=== PATIENT | female | born 2005 | race Caucasian/White ===

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

== ENCOUNTER 2023-04-16 14:03 | Emergency (ER) | payer MEDICAID, SELFPAY ==
[2023-04-16 14:46] VITALS: BP 136/61; PULSE 98; RESP 18; TEMP 36.6; O2SAT 98; BMI 37.1
--- NOTE | 2023-04-16 14:47 | ED_ITS ---
HPI - Nausea/Vomiting/Diarrhea General Chief complaint: Nausea/Vomiting/Diarrhea Stated complaint: vomiting Time Seen by Provider: 04/16/23 16:33 Source: patient Mode of arrival: ambulatory Limitations: no limitations History of Present Illness HPI Narrative: 17 yo female presents to the ED today with nausea/ vomiting, generalized weakness, and epigastric pain beginning this morning. Patient states she has been vomiting since 05:00 hours is not been able to eat or drink. She states she is feeling weak and dizzy. Patient complains of a pressure-like pain and points to her epigastric area when asked to localize the pain. Patient denied fever, chills, rhinorrhea, sore throat, rhinorrhea. She states she has an occasional nonproductive cough. She denied chest pain, shortness of breath dyspnea on exertion. She does complain of myalgias and arthralgias. Related Data Previous Rx's Medication Instructions Recorded hydroxyzine HCl 50 mg tablet 50 mg PO QID PRN anxiety #10 tabs 05/03/20 amoxicillin 500 mg capsule 500 mg PO BID 10 days #20 caps 04/15/21 ibuprofen 400 mg tablet 400 mg PO Q6H PRN pain #28 tabs 04/15/21 prednisone 20 mg tablet 40 mg (2 x 20 mg) PO DAILY 5 days 04/15/21 #10 tabs ondansetron 4 mg disintegrating 4 mg PO Q6-8H PRN nausea and 04/16/23 tablet vomiting #14 tabs Allergies Allergy/AdvReac Type Severity Reaction Status Date / Time No Known Allergies Allergy Verified 04/16/23 14:46 Review of Systems 2 Review of Systems: Yes all other systems are reviewed and are negative [facility] Past Medical History [facility] Narrative: Past medical history: Absent seizures-she takes no medications. Surgical history: None. Social history: She denies tobacco use. She occasionally drinks alcohol but did not drink recently. She smokes marijuana 2-3 times every other day Medical History Anxiety Seizures Social History Alcohol intake: current Alcohol intake frequency: holidays/special occasions only Smoked in Last 30 Days: No Use of substances other than those prescribed or required for medical reasons: Yes Substance Use Type: Marijuana Advance Directives: No Advance Directives Information Provided: No Physical Exam 2 Vital Signs: Vital Signs: Last Vital Signs Temp 98.0 F 04/16/23 16:50 Pulse 97 04/16/23 18:45 Resp 14 04/16/23 18:45 BP 130/70 04/16/23 18:45 Pulse Ox 100 04/16/23 18:45 O2 Del Method Room Air 04/16/23 18:45 BMI result Body Mass Index 37.1 Vital signs were normal Exam: General: Awake, patient was actively vomit small amounts of bilious material out was in the room. Head: Normocephalic, atraumatic EENT: PERRL, Lids normal, sclera normal, conjunctiva normal, nose normal , ears normal, throat without erythema or exudates Neck: Supple, no adenopathy, no trachea midline or C-spine tenderness Lung: breath sounds symmetric, no wheezing, rales or rhonchi Chest: symmetric movement, nontender Heart: regular rate and rhythm, normal S1, S2 no murmurs or rubs Abdomen: soft, moderate epigastric tenderness r, nondistended, normal bowel sounds Back: no vertebral tenderness, no CVAT Extremities: no deformities, moves all extremities symmetrically Neuro: Awake, alert, oriented, normal speech, moves all extremities symmetrically Psych: Pleasant, cooperative Course Course Course Narrative: RME:?17 yo female presents to the ED today with nausea/ vomiting, generalized weakness, and epigastric pain beginning this morning. +sick contacts. Denies etoh consumptions. Denies chance of . Denies fever/chills, diarreah, dysuria, hematuria, vaginal discharge. PE: ttp epigastric region. no rebound/ guarding. Plan: serology, UA, preg Full HPI, ROS and PE to be performed by the primary ED provider. Medications Administered Discontinued Medications Generic Name Dose Route Start Last Admin Trade Name Freq PRN Reason Stop Dose Admin Sodium Chloride 1,000 mls @ 999 mls/hr 04/16/23 16:44 04/16/23 18:29 Ns IV 04/16/23 17:44 Infused .Q1H1M STA Infusion Ketorolac Tromethamine 15 mg 04/16/23 16:44 04/16/23 17:05 Ketorolac Tromethamine 15 Mg/Ml Vial IVPUSH 04/16/23 16:45 15 mg ONCE STA Administration Ondansetron HCl 4 mg 04/16/23 16:44 04/16/23 17:04 Ondansetron Hcl 4 Mg/2 Ml Vial IVPUSH 04/16/23 16:45 4 mg ONCE ONE Administration Medical Decision Making Medical Decision Making [facility] Narrative: 17 yo female presents to the ED today with nausea/ vomiting, generalized weakness, and epigastric pain beginning this morning patient has not been able to eat or drink since 05:00 hours. Patient's other symptoms are consistent with acute viral syndrome, the patient does smoke marijuana every other day but she has never had episodes protracted vomiting in the past. 19:21 Patient's laboratory evaluation was interpreted by me as follows: CBC and CMP were normal. COVID-19 was negative. Urinalysis negative. Urine test was negative. Patient was treated with Toradol 15 mg IV, Zofran 4 mg IV and normal saline x1 L. Patient got significant improvement her symptoms was able to eat crackers and drink charles delroy difficulty. Patient's presentation is consistent with acute viral syndrome and I did discuss this with her. Patient was prescribed Zofran, she was advised to take Tylenol ibuprofen pain and fever, she was advised that a NAVA diet. She was given printed and verbal instructions discharged home. Differential Diagnosis Differential Diagnoses: The differential diagnosis associated with the presentation includes Differential diagnosis includes was not limited to gastritis, GERD, viral syndrome, hyperemesis secondary to cannabis use disorder Admission/Observation Consideration of admission/observation: Escalation of care including admission/observation considered Lab Data [facility] Lab Attestation statement: I reviewed the patient's lab results. See [facility] 04/16/23 15:25 04/16/23 15:25 Labs: Lab Results 04/16/23 Range/Units 15:25 WBC 7.6 (4.8-10.8) X10*3/uL RBC 4.72 (4.20-5.50) X10*6/uL Hgb 13.2 (12.0-16.0) g/dl Hct 40.2 (37.0-47.0) % MCV 85.2 (80.0-98.0) fL MCH 28.0 (27.0-33.0) pg MCHC 32.8 (31.0-35.0) g/dl RDW 12.5 (11.0-16.0) % Plt Count 253 (160-400) X10*3/uL MPV 10.2 (9.4-12.3) fL Immature Gran % (Auto) 0.4 (0.0-0.4) % Neut % (Auto) 93.1 H (45-73) % Lymph % (Auto) 2.1 L (20-40) % Banks % (Auto) 4.1 (2-11) % Eos % (Auto) 0.0 (0-4) % Baso % (Auto) 0.3 (0-2) % Lymph # (Auto) 0.2 L (1.2-4.9) X10*3/uL Banks # (Auto) 0.3 (0.1-1.2) X10*3/uL Eos # (Auto) 0.0 (0.0-0.4) X10*3/uL Baso # (Auto) 0.0 (0.0-0.2) X10*3/uL Abs Immat Gran (auto) 0.03 (0.00-0.03) X10*3/uL Absolute Neuts (auto) 7.1 (2.0-8.3) x10*3/uL Absolute Nucleated RBC 0.000 (0.0-0.012) X10*3/uL Nucleated RBC % (auto) 0.0 (0.0-0.2) /100WBC Smear Tech's Comments VERIFIED Sodium 138 (135-145) mmol/L Potassium 3.3 (3.3-5.1) mmol/L Chloride 109 H (96-108) mmol/L Carbon Dioxide 21 L (22-29) mmol/L Anion Gap 11 L (12-20) BUN 10 (9-16) mg/dL Creatinine 0.68 (0.5-1.4) mg/dL Estim Creat Clear Calc 162.4 Estimated GFR > 60 Random Glucose 110 (60-115) mg/dL Calcium 8.6 (8.4-10.2) mg/dL Magnesium 1.8 (1.6-2.6) mg/dL Total Bilirubin 0.7 (0.0-1.0) mg/dL AST 20 (5-31) U/L ALT 18 (0-31) U/L Alkaline Phosphatase 50 (39-117) U/L Total Protein 7.7 (6.5-8.0) g/dL Albumin 3.9 (3.5-5.0) g/dL Lipase 7 L (8-78) U/L Urine Color Yellow Urine Appearance Cloudy Urine pH 8.0 (5.0-9.0) Ur Specific [place] 1.025 (1.005-1.025) Urine Protein Negative (Neg-Trace) mg/dL Urine Glucose (UA) Negative (Negative) mg/dL Urine Ketones Negative (Negative) mg/dL Urine Blood Negative (Negative) Urine Nitrite Negative (Negative) Ur Leukocyte Esterase Negative (Negative) Urine Test NEGATIVE (NEGATIVE) COVID-19 (YUE) Negative (Negative) COVID-19 Clin Com See Note Independent Historian Clinical information obtained from an independent historian. History obtained from or confirmed by: Friend Prescription Management I considered prescription management with: Other Antiemetics Chronic Conditions Patient?s care impacted by: Other (Seizure disorder) Discharge Plan Discharge Clinical Impression: Viral syndrome Abdominal pain Qualifiers: Abdominal location: epigastric Qualified Code(s): R10.13 - Epigastric pain Vomiting Qualifiers: Vomiting type: bilious vomiting Nausea presence: with nausea Qualified Code(s): R11.14 - Bilious vomiting Patient Disposition: Home, Self-Care Instructions: Acute Nausea and Vomiting (ED), Viral Syndrome (ED) Additional Instructions: Your blood work was unremarkable. Urine test was negative and your urine test was negative. Your symptoms are consistent with a viral infection/viral syndrome. For the next 24 hours, stay on a NAVA diet (bananas, rice, applesauce, tea and toast). Follow-up with your doctor in 2 days. Please return to the emergency department if your symptoms get worse or if you develop any symptoms that are concerning to you. Prescriptions: New ondansetron 4 mg tablet,disintegrating 4 mg PO Q6-8H PRN (Reason: nausea and vomiting) Qty: 14 0RF No Action hydroxyzine HCl 50 mg tablet 50 mg PO QID PRN (Reason: anxiety) Qty: 10 0RF Rx Instructions: This medication may cause drowsiness amoxicillin 500 mg capsule 500 mg PO BID 10 Days Qty: 20 0RF prednisone 20 mg tablet 40 mg PO DAILY 5 Days Qty: 10 0RF ibuprofen 400 mg tablet 400 mg PO Q6H PRN (Reason: pain) Qty: 28 0RF
[2023-04-16 15:42] LABS: Basophils Percent Auto 0.3 % (0-2); Hematocrit 40.2 % (37.0-47.0); Hemoglobin 13.2 g/dl (12.0-16.0); Imm Gran Abs Auto 0.03 X10*3/uL (0.00-0.03); Imm Gran Pct Auto 0.4 % (0.0-0.4); Lymphocytes Absolute Auto 0.2 X10*3/uL (1.2-4.9); Lymphocytes Percent Auto 2.1 % (20-40); MANUAL DIFF FLAG SCAN; Mean Corpuscular HGB Conc 32.8 g/dl (31.0-35.0); Mean Corpuscular Volume 85.2 fL (80.0-98.0); Mean Platelet Volume 10.2 fL (9.4-12.3); Monocytes Absolute Auto 0.3 X10*3/uL (0.1-1.2); Monocytes Percent Auto 4.1 % (2-11); Neutrophils Absolute Auto 7.1 x10*3/uL (2.0-8.3); Neutrophils Percent Auto 93.1 % (45-73); Platelet Count 253 X10*3/uL (160-400); Red Blood Count 4.72 X10*6/uL (4.20-5.50); Red Cell Distribution Width 12.5 % (11.0-16.0); SCAN SMEAR FLAG 1; White Blood Count 7.6 X10*3/uL (4.8-10.8)
[2023-04-16 15:44] LABS: Appearance Urine Cloudy; Color Urine Yellow; Glucose Urine UA Negative (Negative); Leukocyte Esterase Urine Negative (Negative); Nitrite Urine Negative (Negative); Specific Gravity - Urine 1.025 (1.005-1.025); Urine Blood Negative (Negative); Urine Ketones Negative (Negative); Urine Protein Negative (Neg-Trace)
[2023-04-16 15:46] LABS: UPreg QC Valid YES; Urine Pregnancy NEGATIVE (NEGATIVE)
[2023-04-16 15:54] LABS: Lipase 7 U/L (8-78); Magnesium 1.8 mg/dL (1.6-2.6)
[2023-04-16 15:56] LABS: COVID-19 Test Negative (Negative); IDNOW Serial# 6674DD1D
[2023-04-16 16:03] LABS: SLIDE REVIEW VERIFIED
--- NOTE | 2023-04-16 16:08 | PC.NURSE ---
IV established to right AC, patient tolerated well. Patient has been vomiting since 5am, states that she didn't have anything weird to eat last night, did have some weed but has never had issues with it in the past. Patient with pain to her abdomen, 8/10. Patient is calm and cooperative, no s/s of distress noted at this time.
[2023-04-16 16:45] LABS: Anion Gap 11 (12-20)
[2023-04-16 16:49] LABS: Alanine Aminotransferase 18 U/L (0-31); Albumin Level 3.9 g/dL (3.5-5.0); Alkaline Phosphatase 50 U/L (39-117); Aspartate Amino Transferase 20 U/L (5-31); Bilirubin Total 0.7 mg/dL (0.0-1.0); Blood Urea Nitrogen 10 mg/dL (9-16); Calcium 8.6 mg/dL (8.4-10.2); Carbon Dioxide 21 mmol/L (22-29); Chloride 109 mmol/L (96-108); Creatinine Clr Calc Pharmacy 162.4; Estimated Glomerular Filt Rate > 60; Glucose Random 110 mg/dL (60-115); Potassium 3.3 mmol/L (3.3-5.1); Sodium 138 mmol/L (135-145); Total Protein 7.7 g/dL (6.5-8.0)
[2023-04-16 16:50] VITALS: BP 140/73; PULSE 99; RESP 16; TEMP 36.7; O2SAT 99
[2023-04-16] MEDS: ondansetron HCL 4 MG/2 ML VIAL IVPUSH (17:04)
[2023-04-16] MEDS: 0.9 % Sodium Chloride 1,000 ML 999 ML IV (17:04)
[2023-04-16] MEDS: Ketorolac Tromethamine 15 MG/ML VIAL IVPUSH (17:05)
--- NOTE | 2023-04-16 18:27 | PC.NURSE ---
Patient PO challenged with water and was able to keep the fluids down. Patient given some charles delroy and saltines and provider aware that she did well with water.
[2023-04-16 18:45] VITALS: BP 130/70; PULSE 97; RESP 14; O2SAT 100
== END 2023-04-16 19:30 | disposition home or self-care (01) ==
PROVIDERS: Physician Assistant Medical; Emergency Provider Emergency Medicine Emergency Medical Services; PCP Pediatrics
DX: B34.9 Viral infection, unspecified (principal); R11.14 Bilious vomiting; R10.13 Epigastric pain; Z11.52 Encounter for screening for COVID-19; Z79.899 Other long term (current) drug therapy
CPT/HCPCS: 80053; 81003; 81025; 83690; 83735; 85025; 87635; 96361; 96374; 96375; 99284; J1885; J2405

== ENCOUNTER 2024-01-16 12:26 | Outpatient (REF) | payer MEDICAID, SELFPAY ==
[2024-01-16 13:08] LABS: MANUAL DIFF FLAG NO
[2024-01-16 13:19] LABS: Basophils Percent Auto 0.7 % (0-2); Eosinophils Absolute Auto 0.2 X10*3/uL (0.0-0.4); Eosinophils Percent Auto 3.5 % (0-4); Hematocrit 37.5 % (37.0-47.0); Hemoglobin 12.2 g/dl (12.0-16.0); Imm Gran Abs Auto 0.03 X10*3/uL (0.00-0.03); Imm Gran Pct Auto 0.5 % (0.0-0.4); Lymphocytes Absolute Auto 1.3 X10*3/uL (1.2-4.9); Lymphocytes Percent Auto 23.3 % (20-40); Mean Corpuscular HGB Conc 32.5 g/dl (31.0-35.0); Mean Corpuscular Hemoglobin 28.7 pg (27.0-33.0); Mean Corpuscular Volume 88.2 fL (80.0-98.0); Mean Platelet Volume 10.7 fL (9.4-12.3); Monocytes Absolute Auto 0.5 X10*3/uL (0.1-1.2); Monocytes Percent Auto 9.2 % (2-11); Neutrophils Absolute Auto 3.6 x10*3/uL (2.0-8.3); Neutrophils Percent Auto 62.8 % (45-73); Platelet Count 287 X10*3/uL (160-400); Red Blood Count 4.25 X10*6/uL (4.20-5.50); Red Cell Distribution Width 12.8 % (11.0-16.0); White Blood Count 5.8 X10*3/uL (4.8-10.8)
[2024-01-16 13:47] LABS: Alanine Aminotransferase 17 U/L (0-31); Albumin Level 3.6 g/dL (3.5-5.0); Alkaline Phosphatase 54 U/L (39-117); Anion Gap 10 (12-20); Aspartate Amino Transferase 14 U/L (5-31); Bilirubin Total 0.3 mg/dL (0.0-1.0); Blood Urea Nitrogen 7 mg/dL (9-16); Carbon Dioxide 25 mmol/L (22-29); Chloride 108 mmol/L (96-108); Cholesterol 154 mg/dL (<200); Estimated Glomerular Filt Rate > 60; Glucose Random 87 mg/dL (60-115); HDL Cholesterol 36 mg/dL (>40); LDL Cholesterol Calculated 107 mg/dL (<100); Potassium 4.3 mmol/L (3.3-5.1); Sodium 139 mmol/L (135-145); Total Protein 7.3 g/dL (6.5-8.0); Triglycerides 57 mg/dL (<150)
== END 2024-01-16 12:27 | disposition home or self-care (01) ==
LOC: HO.HHCL 12:26
PROVIDERS: Visit Provider Nurse Practitioner Family
DX: E66.01 Morbid (severe) obesity due to excess calories (principal)
CPT/HCPCS: 36415; 80053; 80061; 85025

== ENCOUNTER 2024-02-28 16:18 | Outpatient (REF) | payer MEDICAID, SELFPAY ==
[2024-02-29 11:30] LABS: CT PCR NOT DETECTED (Not Detect.); NG PCR NOT DETECTED (Not Detect.)
== END 2024-02-28 16:19 | disposition home or self-care (01) ==
LOC: HO.LNP 16:18
PROVIDERS: Visit Provider Nurse Practitioner Family
DX: Z00.00 Encounter for general adult medical examination without abnormal findings (principal)
CPT/HCPCS: 87491; 87591

== ENCOUNTER 2024-04-02 17:48 | Outpatient (REF) | payer MEDICAID, SELFPAY ==
[2024-04-03 14:55] LABS: Bacterial Vaginosis PCR POSITIVE (Negative); Candida Group PCR NOT DETECTED (Not Detect); Candida glab krusei PCR NOT DETECTED (Not Detect); Trichomonas vaginalis PCR DETECTED (Not Detect)
[2024-04-03 15:28] LABS: CT PCR DETECTED (Not Detect.); NG PCR NOT DETECTED (Not Detect.)
== END 2024-04-02 17:49 | disposition home or self-care (01) ==
LOC: HO.LNP 17:48
PROVIDERS: Visit Provider Internal Medicine
DX: Z11.3 Encounter for screening for infections with a predominantly sexual mode of transmission (principal)
CPT/HCPCS: 0352U; 87491; 87591

== ENCOUNTER 2024-04-04 09:56 | Outpatient (REF) | payer MEDICAID, SELFPAY ==
[2024-04-04 11:34] LABS: HIV AB/AG Nonreactive (Nonreactive); HIV Num 1 0.06 S/CO (0.00-0.99)
[2024-04-04 11:36] LABS: Syphilis Screen Nonreactive (Nonreactive)
== END 2024-04-04 09:57 | disposition home or self-care (01) ==
LOC: HO.HHCL 09:56
PROVIDERS: Visit Provider Internal Medicine
DX: Z11.3 Encounter for screening for infections with a predominantly sexual mode of transmission (principal); Z11.4 Encounter for screening for human immunodeficiency virus [HIV]; R35.0 Frequency of micturition
CPT/HCPCS: 36415; 86780; 87389

== ENCOUNTER 2024-06-18 16:35 | Outpatient (REF) | payer MEDICAID, SELFPAY ==
--- OUTSIDE RECORDS SUMMARY | 2024-06-18 19:55 | XMS_ITS | Encounter Summary ---
Author Organization [employer] Address [address] [place] [address] [address] [place] [address] Care Team Providers Care Chalk Machine Operator Name Role Phone Cassie Yeager MD Primary Care Provider Jacque Feldman Primary Care Provider [phone] Valerie Kulkarni NP Primary Care Provider Encounter Details Date Type Department Care Team (Late st Contact Info) Description 01/18/[address] [facility] MEDICINE [address] [place], [place] [id number] Cassie Yeager MD [address] [place], [place] [id number] Social History Tobacco Use Types Packs/Day Years Used Date Smoking Tobacco: Never Smokeless Tobacco: Never Comments Unknown Sex and Gender Information Value Date Recorded Sex Assigned at Female 03/22/2022 10:17 AM EDT Legal Sex Female 10:17 AM EDT Gender Identity Female 03/22/2022 10:17 AM EDT Sexual Orientation Bisexual 03/22/2022 10 :17 AM EDT documented as of this encounter Plan of Treatment Not on file documented as of this encounter Visit Diagnoses Not on filedocumented in this encounter Care Teams Chalk Machine Operator Relationship Specialty Start Date End Date Cassie Yeager MD [address] [place] [id number] PCP - General Pediatrics 04/02/14 04/18/23 Jacque Feldman FNP [address] [place] [address] PCP - General Family Medicine 04/19/23 06/20/23 Valerie Kulkarni NP [address] [place] [address] PCP - General Family Medicine 06/21/23 documented as of this encounter
--- OUTSIDE RECORDS SUMMARY | 2024-06-18 19:55 | XMS_ITS | Encounter Summary ---
Author Organization [employer] Address [address] [facility] 7[address] [place] [address] Care Team Providers Care Greeting Card Editor Name Role Phone Valerie Kulkarni NP Primary Care Provider [phone] Encounter Details Date Type Department Care Team ([facility] st Contact Info) Description 05/14/2024 Orders Only [facility] [address] [place], [place] [phone] Provider, MD Toby Social History Tobacco Use Types Packs/Day Years Used Date Smoking Tobacco: Never Passive Smoke Exposure: Never Smokeless Tobacco: Never Alcohol Use Standard Drinks/Week Comments Yes 0 (1 standard drink = 0.6 oz pur e alcohol) occisonally Depression Answer Date Recorded Patient Health Questionnaire-9 Score 24 01/16/2024 Patient Health Questionnaire-9 Score 24 01/16/2024 Last PHQ-9: Questionnaire Data Not on file 0 01/16/2024 Housing Stability Answer Date Recorded What is your housing situation today? I have randal zamarripa 12/30/[address] you li ve. Do you have problems with any of the following? None of the above 12/30/2023 Food Insecurity Answer Date Recorded Within the past 12 months, y ou worried that your food would run out before you got money to buy more: Sometimes True 2023 Within the past 12 months,th e food you bought just didn't last and you didn't have enough money to get more: Never True 01/16/2024 Transportation Answer Date Recorded In the past 12 months, has l ack of transportation kept you from medical appts, meetings, work or from getting things needed for daily living? No 12/30/2023 Utilities Answer Date Recorded In the past 12 months, has t he electric, gas, oil or water company threatened to shut off services in your home? No 12/30/2023 Depression Answer Date Recorded Patient Health Questionnaire-2 Score 4 01/16/2024 Internet Access Answer Date Recorded Internet Access Q1 Yes 01/23/2024 Internet Access Q2 Not on file 01/23/2024 Comments No Sex and Gender Information Value Date Recorded Sex Assigned at Female 03/22/2022 10:17 AM EDT Legal Sex Female 10:17 AM EDT Gender Identity Female 03/22/2022 10:17 AM EDT Sexual Orientation Bisexual 03/22/2022 10 :17 AM EDT documented as of this encounter Plan of Treatment Not on file documented as of this encounter Procedures Procedure Name Priority Date/Time Associated Diagnosis Comments CBC (INCLUDES DIFFERENTIAL AND PLATELETS) W/SMEAR FOR EH Routine 05/12/2024 9:53 AM EST documented in this encounter Results * CBC (includes Differential and Platelets) w/Smear for Ehrlichia (05/12/2024 9:53 AM EST) Blood us Historical Provider LAB BLOOD ORDERABLES Aimee l Result documented in this encounter Visit Diagnoses Not on filedocumented in this encounter Additional Health Concerns Assessment Noted Time PHQ-9 Depression Total Score: 24 024 11:42 AM EDT documented as of this encounter Care Teams Greeting Card Editor Relationship Specialty Start Date End Date Valerie Kulkarni NP [address] [place] [id number] PCP - General Family Medicine 06/21/23 documented as of this encounter
--- OUTSIDE RECORDS SUMMARY | 2024-06-18 19:56 | XMS_ITS | Encounter Summary ---
Author Organization [employer] Address [address] [facility] 7t [place] [address] [address] Team Prov[address] Care Court Administrator Name Role Phone Valerie Kulkarni NP Primary Care Provider [phone] Reason for Visit * Reason Onset Date Comments Chart Prep 05/28/2024 Encounter Details Date Type Department Care Team ([facility] st Contact Info) Description 05/28/2024 Telephone [facility] MED[facility] [address] [place], [place] [phone] Hoa Meeks [place] Chart Prep Social History Tobacco Use Types Packs/Day Years [...] AM EDT documented as of this encounter Miscellaneous Notes * Telephone Encounter - Hoa Meeks [place] - 05/28/2024 1:31 PM EST Chart Prep Labs: done Images: not applicable Vaccines due: Not Applicable Referrals: Nutrition complete Screenings: Hep C Overdue care gaps: None documented in this encounter Plan of Treatment Not on file documented as of this encounter Visit Diagnoses Not on filedocumented in this encounter Additional Health Concerns Assessment Noted Time PHQ-9 Depression Total Score: 24 024 11:42 AM EDT documented as of this encounter Care Teams Court Administrator Relationship Specialty Start Date End Date Valerie Kulkarni NP [address] [place] [address] PCP - General Family Medicine 06/21/23 documented as of this encounter
--- OUTSIDE RECORDS SUMMARY | 2024-06-18 19:56 | XMS_ITS | Encounter Summary ---
Author Organization [facility] Address [address] [facility] 7t [place] [address] Care Team Providers Care Baggage Clerk Name Role Phone Valerie Kulkarni NP Primary Care Provider [phone] Encounter Details Date Type Department Care Team ([facility] st Contact Info) Description 06/18/2024 1:45 PM EST Office Visit [facility] MED[facility]INE [address] [place] [address] Sharmaine Shaffer CNM [address] [place] [address] Dysuria (Primary Dx); Vaginal discharge Social History Tobacco Use Types Packs/Day Years Used Date Smoking Tobacco: Never Passive Smoke Exposure: Never Smokeless Tobacco: Never Tobacco Cessation:Counseling Given: Not Answered Alcohol Use Standard Drinks/Week Comments Yes 0 [...] AM EDT documented as of this encounter Last Filed Vital Signs Vital Sign Reading Time Taken Comments Blood Pressure 130/72 06/18/2024 1:57 PM EST Pulse 84 06/18/2024 1:57 PM EST Temperature 36.6 ??C (97.9 ??F) 06/18/2024 1:57 PM ES T Respiratory Rate 20 06/18/2024 1:57 PM EST Oxygen Saturation 98% 06/18/2024 1:57 PM EST Inhaled Oxygen Concentration - - Weight 112 kg (246 lb) 06/18/2024 1:57 PM EST Height 167.6 cm (5' 6 ) 06/18/2024 1:57 PM EST Body Mass Index 39.71 06/18/2024 1:57 PM EST documented in this encounter Progress Notes * Sharmaine Shaffer CNM - 06/18/2024 1:45 PM EST Subjective Patient ID: Jean Carlos Mathews is a 18 y.o. female who presents for urinary symptoms New onset dysuria and urgency x 1 day. Feels similar to UTI that she had in 12/2023. Positive chlamydia, trichomonas and bacterial vaginosis 03/2024. She reports completing medication as prescribed and had negative repeat testing at outside office last month. 1 AMAB partner, no safety concerns, she thinks he completed treatment and they waited several weeks after to have sex. Would like repeat testing today. Notes some clear vaginal discharge, no other vaginal symptoms. Prefers to self collect vaginal swabs. Nexplanon inserted 11/2021, happy with method at this time. Review of Systems Constitutional: Negative for chills and fever. Gastrointestinal: Negative for nausea and vomiting. Genitourinary: Positive for dysuria, urgency and vaginal discharge. Negative for dyspareunia, enuresis, flank pain, genital sores, hematuria, menstrual problem, pelvic pain, vaginal bleeding and vaginal pain. Musculoskeletal: Negative for back pain. Objective BP 130/72 (BP Location: Right arm, Patient Position: Sitting, BP Cuff Size: Adult) Pulse 84 Temp 97.9 ??F (36.6 ??C) (Temporal) Resp 20 Ht 5' 6 (1.676 m) Wt 246 lb (112 kg) LMP 05/07/2024 (Approximate) SpO2 98% BMI 39.71 kg/m?? Physical Exam Constitutional: Appearance: Normal appearance. Abdominal: Tenderness: There is no right CVA tenderness or left CVA tenderness. Neurological: Mental Status: She is alert. Psychiatric: Mood and Affect: Mood normal. Behavior: Behavior normal. Assessment/Plan Diagnoses and all orders for this visit: Dysuria - POCT urinalysis dipstick manually resulted - Culture, Urine, Routine Symptomatic of UTI, leuks and blood on UA. Will treat with Macrobid. Pyridium sent in for symptom relief. Reviewed it may discolor body fluids, not a contact lens wearer. Vaginal discharge - Bacterial Vaginosis Panel - Chlamydia/N. Gonorrhoeae RNA, TMA, Urogenitial Gonorrhea/Chlamydia and bacterial vaginosis swab sent. Will contact with results. Other orders - phenazopyridine (Pyridium) 200 MG tablet; Take 1 tablet (200 mg) by mouth with breakfast, with lunch, and with evening meal for 2 days. - nitrofurantoin, macrocrystal-monohydrate, (Macrobid) 100 MG capsule; Take 1 capsule (100 mg) by mouth 2 times daily for 7 days. Reviewed that Nexplanon is FDA approved for 3y, but research supports extended use up to 5 years. May remove any time, advised replacement if she wants a new one, no later than 5 years from insertiondate, may replace prior to that if she wants. documented in this encounter Plan of Treatment Scheduled Orders Name Type Priority Associated Diagnoses Orde r Schedule Culture, Urine, Routine Microbiology Routine Dysuria Ordered: 06/18/2024 Bacterial Vaginosis Panel Microbiology Routine Vaginal discharge Ordered: 06/18/2024 Chlamydia/N. Gonorrhoeae RNA, TMA, Urogenitial Microbiology Routine Vaginal discharge Ordered: 06/18/2024 documented as of this encounter Procedures Procedure Name Priority Date/Time Associated Diagnosis Comments POCT URINALYSIS DIPSTICK Routine 06/18/2024 2:12 PM EST Dysuria documented in this encounter Results * (ABNORMAL) POCT urinalysis dipstick manually resulted (06/18/2024 2:12 PM EST) Color, UA Yellow Clarity, UA Clear Glucose, UA Negative Bilirubin, UA Negative Ketones, UA Negative Spec Grav, UA 1.030 Blood, UA Positive(A) Negative, None Detected pH, UA 6.5 Protein, UA Many Comment:30mg Urobilinogen, UA 0.2 Leukocytes, UA Many(A) Negative, Rare, Trace Comment:small Nitrite, UA Negative Negative, None Detected Appearance, UA yellow QC Media Lot # [id number] Lot# Expiration Date Urine 06/18/2024 2:12 PM EST Sharmaine Shaffer CNM POINT OF CARE TEST ENTER/ EDIT ORDERABLES Final Result documented in this encounter Visit Diagnoses Diagnosis Dysuria- Primary Vaginal discharge Leukorrhea, not specified as infective documented in this encounter Additional Health Concerns Assessment Noted Time PHQ-9 Depression Total Score: 24 024 11:42 AM EDT documented as of this encounter Care Teams Baggage Clerk Relationship Specialty Start Date End Date Valerie Kulkarni NP [address] [place] [id number] PCP - General Family Medicine 06/21/23 documented as of this encounter
--- OUTSIDE RECORDS SUMMARY | 2024-06-18 19:56 | XMS_ITS | Encounter Summary ---
Author Organization [employer] Address [address] [facility] 7 [place] [address] Care Team Providers Care Repairer Cylinder Heads Name Role Phone Csasie Yeager MD Primary Care Provider [phone] Jacque Feldman Primary Care Provider [phone] Valerie Kulkarni NP Primary Care Provider [phone] Reason for Visit * Reason Onset Date Comments Appointment Request 01/18/2023 Encounter Details Date Type Department Care Team (Late st Contact Info) Description 01/18/2023 Telephone [facility] MEDICINE [address] [place], [place] [phone] Cassie Yeager MD [address] [place], [place] [phone] Appointment Request Social History Tobacco Use Types Packs/Day Years [...] encounter Miscellaneous Notes * Telephone Encounter - Lisa Major - 01/18/2023 12:35 PM EDT Tc from pt requesting a TP appt and a physical . documented in this encounter Plan of Treatment Not on file documented as of this encounter Visit Diagnoses Not on filedocumented in this encounter Care Teams Repairer Cylinder Heads Relationship Specialty Start Date End Date Cassie Yeager MD [address] [place] [address] PCP - General Pediatrics 04/02/14 04/18/23 Jacque Feldman FNP [address] [place] [address] PCP - General Family Medicine 04/19/23 06/20/23 Valerie Kulkarni NP [address] [place] [address] PCP - General Family Medicine 06/21/23 documented as of this encounter
--- OUTSIDE RECORDS SUMMARY | 2024-06-18 19:56 | XMS_ITS | Clinical Summary ---
Author Organization [employer] Address [address] [facility] 7t [place] [address] Care Team Providers Care Cartographic Engineer Name Role Phone Valerie Kulkarni NP Primary Care Provider [phone] Allergies No known active allergies Medications * This document contains information received from the source organization and may not represent a complete record from that organization. acetaminophen (Tylenol) 500 MG tablet 1 tablet by oral route every 6 hours prn fever or pain 0 Active calcium citrate 1040 MG tablet 1 tablet by oral route daily 2 Active chlorhexidine (Peridex) 0.12 % solutionIndicatio ns:Hx of tooth extraction, class III edentulism Swish 15 mL morning and night for 1 minute. Spit, do not swallow. Do not eat or drink for 30 minutes following use. 473 mL 4 Active Additional Information Patient not taking.Reported on 08/15/2023 Chlorhexidine Gluconate (Hibiclens) 4 % solutionIndicatio ns:Folliculitis Rinse area with water, then apply minimum amount necessary to cover skin or wound area and wash gently. Rinse again thoroughly 2 times a day 118 mL 4 Active escitalopram (Lexapro) 10 MG tablet Take 0.5 tablets (5 mg) by mouth Once per day for 7 days, THEN 1 tablet (10 mg) Once per day for 23 days. 27 tablet 4 Active phenazopyridine (Pyridium) 200 MG tablet Take 1 tablet (200 mg) by mouth with breakfast, with lunch, and with evening meal for 2 days. 6 tablet 5 025 Active nitrofurantoin, macrocrystal-mono hydrate, (Macrobid) 100 MG capsule Take 1 capsule (100 mg) by mouth 2 times daily for 7 days. 14 capsule 5 025 Active etonogestrel-elut ing (Nexplanon) 68 mg contraceptive implant 1 each by Implant route 1 (one) time. Inserted 12/11/2021 Active Active Problems Problem Noted Date Diagnosed Date Cannabis abuse, episodic use 05/13/2024 Elevated blood pressure reading 05/13/2024 Assessment & Plan (05/13/2024 7:14 PM EST): monitor SOLEDAD (generalized anxiety disorder) 05/02/2024 Assessment & Plan (05/13/2024 7:13 PM EST): Will restart escitalopram , titrating to 10 mg as tolerated Pt plans to abstain from cannibus, declines assistance Encounter for routine adult health examination without abnormal findings 03/17/2024 Assessment & Plan (03/17/2024 11:56 AM EDT): Anticipatory guidance reviewed Encounter for immunization 03/17/2024 Recurrent major depressive disorder 02/28/2024 Dental plaque 08/26/2023 Dental caries 07/04/2023 Non-restorable tooth 07/04/2023 Thoracogenic scoliosis of thoracolumbar region 0 08/25/2022 Attention deficit hyperactiv ity disorder (ADHD), combined type 08/20/2022 Vitamin D deficiency 10/23/2018 Snoring 04/20/2018 Chronic daily headache 01/11/2018 Stress 01/11/2018 Loss of consciousness 12/13/2017 Generalized anxiety disorder 11/14/2017 Overview (07/29/2022): Patient has frequent anxiety that is difficult to control. She also has a history of panic episodes. Anxiety is contributing to medical symptoms. Last Assessment & Plan: Will meet with patient individually next visit to further assess. Will talk with Alexa Hamron NP. Will consider med eval for anxiety. Assessment & Plan (03/17/2024 11:55 AM EDT): Referral to , contemplative about pharmacology Obese body habitus 11/14/2017 Assessment & Plan (03/17/2024 11:56 AM EDT): Encouraged daily movement Encouraged minimizing processed foods and increasing whole foods particularly vegetables Headache 11/10/2017 Altered mental status 11/10/2017 Migraine with aura 10/25/2017 Obesity 02/06/2013 Resolved Problems Problem Noted Date Diagnosed Date Resolved Date Severe episode of recurrent major depressive disorder, without psychotic features 01/16/202412/2023 Depression 11/14/2017 02/28/2024 Overview (07/29/2022): Patient has ongoing symptoms of depression that are contributing to medical issues and have worsened with increasing stressors. Last Assessment & Plan: Will meet with patient individually next appointment. Will talk with Alexa Harmon NP. Sleep needs to be addressed. Consider referral for TM Encounters Date Type Department Care Team Description 06/18/2024 1:45 PM EST Office Visit [address] [address] Sharmaine Shaffer CNM Dysuria (Primary Dx); Vaginal discharge 06/18/2024 Travel 06/01/[address] [address] Valerie Kulkarni NP No Show 05/28/[address] [address] Hoa Meeks [place] Chart Prep 05/14/2024 Orders Only [facility] [address] [place] [address] [phone] Provider, MD Toby 05/02/2024 11:30 AM EST Office Visit [address] [address] Valerie Kulkarni NP SOLEDAD (generalized anxiety disorder) (Primary Dx); Cannabis abuse, episodic use; Elevated blood pressure reading 04/30/[address] [place] [address] Hoa Meeks [place] Chart Prep 04/04/2024 Orders Only [facility] [address] [place] [address] Bruce Vieyra MD 04/04/2024 Telephone [facility] [address] [place] [address] Bruce Vieyra MD 04/03/2024 Telephone [facility] [address] [place] [phone] Bruce Vieyra MD 04/03/2024 Orders Only [facility] [address] [place] [address] Bruce Vieyra MD Chlamydia trachomatis infection (Primary Dx) 04/02/2024 5:20 PM EST Office Visit [facility] [address] [address] Bruce Vieyra MD Urine frequency (Primary Dx); Screen for STD (sexually transmitted disease); Folliculitis 04/02/2024 2:00 PM EST Nutrition [facility] [address] [place] [address] Class 3 severe obesity due to excess calories with serious comorbidity in adult, unspecified BMI (CMS/HCC) from Last 3 Months Immunizations Name Administration Dates Next Due DTaP 05/09/2008, 5,2003,08/26 DTaP / Hep B / IPV 2003 HPV 9-Valent 06/18/2016,01/17/2015 Hep A, ped/adol, 2 dose 02/07/2014,02/06/2013 Hep B, Adolescent or Pediatric 2003,2003 Hib (HbOC) 11/04/2007, 4,2003,08/26 IPV 05/09/2008,2003,2003 Influenza injectable quadriv alent preservative free 05/13/2020,06/18/2016 Influenza, IIV3, injectable 02/07/2014,1 ,03/02/2005,05/07,04/07/2004 Influenza, Split (incl. palomo fied surface antigen) 02/06/2013 Influenza, seasonal, injecta ble, preservative free 02/28/2024 MMR 07/10/2007,07/07/2004 Meningococcal MCV4P ACYW-135 05/13/2020,01/18/20 15 Pfizer Covid-19 Vaccine 12+ 02/28/2024 Pneumococcal Conjugate PCV 7 11/03/2004, 2003,2003,08/26 Tdap 01/17/2015 Varicella 05/09/2008,07/07/2004 Social History Tobacco Use Types Packs/Day Years [...] Orientation Bisexual 03/22/2022 10 :17 AM EDT Last Filed Vital Signs Vital Sign Reading [...] Mass Index 39.71 06/18/2024 1:57 PM EST Plan of Treatment Health Maintenance Due Date Last Done Comments Hepatitis C Screening 2021 Dental Oral Exam 01/20/2024 07/21/2023, 03/23/2019 Dental Prophylaxis 02/26/2024 08/26/2023, 03/23/2019 Depression Monitoring (PHQ-9) 07/18/2024 01/16/2024, 01/16/2024 Dental X-Ray: Bitewings 07/21/2024 07/21/2023, 03/23 Depression Screening 01/15/2025 01/16/2024, 01/16/20 24 SDOH Screening 01/15/2025 01/16/2024 DTaP/Tdap/Td Vaccines (7 - Td or Tdap) 01/17/2025 01/17/2015, 05/09/2008, 11/03/2004, Additional history exists Chlamydia and Gonorrhea Screening 04/02/2025 04/02/2024, 02/28/2024, 12/26/2020 Alcohol/Substance Use Screening 06/18/2025 06/18/2024 Family Planning (PISQ) 06/18/2025 06/18/2024 Tobacco Screening 06/18/2025 06/18/2024 Dental X-Ray: Full Mouth 07/21/2026 07/21/2023, 1105/2018 Lipid Panel 01/15/2029 01/16/2024 Zoster Vaccines (1 of 2) 2053 RSV Patients and Patients Aged 60 years or older (1 - 1-dose 75+ series) 2078 Hepatitis B Vaccines Completed 2003, 2003, 2003 Pneumococcal Vaccine: Pediatrics (0 to 5 Years) and At-Risk Patients (6 to 64 Years) Aged Out 11/03/2004, 2003, 2003, Additional history exists No longer eligible based on patient's age to complete this topic HIB Vaccines Completed 11/04/2007, 10/2003, 2003, Additional history exists IPV Vaccines Completed 05/09/2008, 10/2003, 2003, Additional history exists Hepatitis A Vaccines Completed 02/07/2014, 02/07/20 13 HPV Vaccines Completed 06/18/2016, 01/17/2015 Meningococcal Vaccine Completed 05/13/2020, 015 COVID-19 Vaccine Completed 02/28/2024, 07/2020, 09/25/2020 Influenza Vaccine Completed 02/28/2024, , 06/18/2016, Additional history exists HIV Screening Completed 04/04/2024 RSV under 20 months Aged Out No longe r eligible based on patient's age to complete this topic Rotavirus Vaccines Aged Out No longer eligible based on patient's age to complete this topic Procedures Procedure Name Priority Date/Time Associated Diagnosis Comments POCT URINALYSIS DIPSTICK Routine 06/18/2024 2:12 PM EST Dysuria CBC (INCLUDES DIFFERENTIAL AND PLATELETS) W/SMEAR FOR EH Routine 05/12/2024 9:53 AM EST CANCELLED URINE Routine 04/04/2024 9:58 AM EST SYPHILIS SCREEN Routine 04/04/2024 9:58 AM EST Urine frequency Screen for STD (sexually transmitted disease) HIV 1/2 ANTIGEN/ANTIBODY, FOURTH GENERATION W/RFL Routine 04/04/2024 9:58 AM EST Urine frequency BACTERIAL VAGINOSIS PANEL Routine 04/02/2024 5:48 PM EST Urine frequency POCT URINALYSIS DIPSTICK Routine 04/02/2024 5:18 PM EST Urine frequency CHLAMYDIA/N. GONORRHOEAE RNA, TMA, UROGENITAL Routine 04/02/2024 12:22 PM EST Screen for STD (sexually transmitted disease) LIPID PANEL, STANDARD Routine 01/16/2024 12:07 PM EDT Class 3 severe obesity due to excess calories with serious comorbidity in adult, unspecified BMI (CMS/HCC) PROPHYLAXIS - ADULT Routine 08/26/2023 1 :00 PM EDT Dental plaque DIAGNOSTIC - DIAGNOSTIC IMAGING - INTRAORAL - COMPREHENSIVE SERIES OF RADIOGRAPHIC IMAGES Routine 07/21/2023 2:30 PM EST PERIODIC ORAL EVALUATION - ESTABLISHED PATIENT Routine 07/21/2023 2:30 PM EST from Last 3 Months or Most Recently Relevant to Health Maintenance Results * (ABNORMAL) POCT urinalysis dipstick manually resulted (06/18/2024 2:12 PM EST) Only the most recent of2 resultswithin the time period is included. Color, UA Yellow Clarity, UA Clear Glucose, [...] CARE TEST ENTER/ EDIT ORDERABLES Final Result * CBC (includes Differential and Platelets) w/Smear for Dottieia (05/12/2024 9:53 AM EST) Blood Historical Provider MD LAB BLOOD ORDERABLES Aimee l Result * Cancelled Urine (04/04/2024 9:58 AM EST) Cancelled Urine SEE NOTE [facility] Comment:NO SPECIEMN RECEIVED FOR URINE CULTURE 04/04/2024 9:58 AM EST 04/04/2024 10:59 PM EST Bruce Vieyra MD HISTORICAL/NON ORDERABLE LA BS Final Result Performing Organization Address City/[facility]/ZIP Co de Phone Number [facility] [address] [place] [phone] * Syphilis Screen (04/04/2024 9:58 AM EST) Syphilis Screen Nonreactive Nonreactive [facility] Blood 04/04/2024 9:58 AM EST 04/04/2024 10:46 AM EST Bruce Vieyra MD LAB BLOOD ORDERABLES Final Result Performing Organization Address [facility] Co de Phone Number [facility] [address] [place] [phone] * HIV-1/2 Antigen and Antibodies, Fourth Generation, with Reflexes (04/04/2024 9:58 AM EST) HIV AB/AG Nonreactive Nonreactive [facility] Comment:HIV-1 p24 Ag and/or HIV-1/HIV-2 Ab not detected.A test result that is nonreactive does not exclude thepossibility of exposure to or infection with HIV-1 and/orHIV-2. Nonreactive results in this assay for individualswith prior exposure to HIV-1 and/or HIV-2 may be due toantigen and antibody levels that are below the limit ofdetection of this assay.The [employer] HIV Ag/Ab Combo assay result andsupplemental assay results should be interpreted inconjunction with the patient's clinical presentation,history and other laboratory results. If the results areinconsistent with clinical evidence, additional testing issuggested to confirm the result. Blood Venous blood specimen / Unknown 04/04/2024 9:58 AM EST 04/04/2024 10:46 AM EST us Bruce Vieyra MD LAB BLOOD ORDERABLES Final Result Performing Organization Address [facility]/ZIP Co de Phone Number [facility] [address] [place] [phone] * (ABNORMAL) Bacterial Vaginosis Panel (04/02/2024 5:48 PM EST) TRICHOMONAS VAGINALIS DETECTION BY PCR DETECTED(A) Not Detect [facility] BACTERIAL VAGINOSIS DETECTION BY PCR POSITIVE(A) Negative [facility] Comment:The BV organism targ ets of the Xpert Xpress MVP test can becommensal in women; Xpert Xpress MVP positive results forbacterial vaginosis should be considered in conjunction withother clinical and patient information to determine thedisease status. Organisms that are not detected by the XpertXpress MVP test have also been reported to be associatedwith BV and aerobic vaginitis.The Xpert Xpress MVP test performance has not been evaluatedin patients under the age of 14. INOCENCIA GROUP DETECTION BY PCR NOT DETECTED Not Detect [facility] Inocencia glab krusei PCR NOT DETECTED Not Detect [facility] Swab Vaginal structure / Unknown 04/02/2024 5:48 PM EST 04/03/2024 12:16 PM EST us Bruce Vieyra MD LAB MICROBIOLOGY - GENERAL ORDERABLES Final Result Performing Organization Address [facility]/ZIP Co de Phone Number [facility] [address] [place] [phone] [phone] * (ABNORMAL) Chlamydia/N. Gonorrhoeae RNA, TMA, Urogenitial (04/02/2024 12:22 PM EST) CT PCR DETECTED(A) Not Detect. [facility] Comment:Detected results may be observed after successful antibiotictreatment due to target nucleic acids from residualnon-viable chlamydia. As with many diagnostic tests, resultsfrom the Xpert CT/NG assay should be interpreted inconjunction with other laboratory and clinical dataavailable to the clinician.Xpert CT/NG performance has not been evaluated in patientsless than 14 years of age. The assay should not be used forthe evaluationof suspected sexual abuse or for other medico- legalindications. Additional testing is recommended inany circumstance when false positive or false negativeresults could lead to adverse medical, social orpsychological consequences.These results must be reported by the ordering clinician orclinical facility to the [facility]as required by state law. NG PCR NOT DETECTED Not Detect. [facility] Comment:A not detected test result does not exclude the possibilityof infection because test results can be affected byimproper specimen collection, concurrent antibiotic therapy,or the number of organisms in the specimen which may bebelow the sensitivity of the test. As with many diagnostictests, results from the Xpert CT/NG assay should beinterpreted in conjunction with other laboratory andclinical data available to the clinician.Xpert CT/NG performance has not been evaluated in patientsless than 14 years of age. The assay should not be used forthe evaluationof suspected sexual abuse or for other medico-legalindications. Additional testing is recommended in anycircumstance when false positive or false negative resultscould lead to adverse medical, social or psychologicalconsequences. Urine (Urine, Random) 04/02/2024 12:22 PM EST 04/03/2024 12:22 PM EST Narrative [facility] - 04/03/2024 3:28 PM EST Urine us Bruce Vieyra MD LAB MICROBIOLOGY - GENERAL ORDERABLES Final Result [facility] [address] [place] [phone] * (ABNORMAL) Lipid Panel, Standard (01/16/2024 12:07 PM EDT) Triglycerides 57 <150 mg/dL [facility] Comment:Desirable Triglyceri de: less than 150 mg/dLBorderline High Triglyceride 150-199 mg/dLHigh Triglyceride: 200-499 mg/dLVery High Triglyceride: greater than or equal to 5OO mg/dL Cholesterol 154 <200 mg/dL [facility] Comment:Desirable Cholestero l: less than 200 mg/dLBorderline High Cholesterol: 200-239 mg/dLHigh Cholesterol: greater than 239 mg/dL LDL Cholesterol Calculated 107(H) <100 mg/dL [facility] Comment:Desirable LDL: less than 100 mg/dLNear Optimal/Above Optimal LDL: 110- 129 mg/dLBorderline High LDL: 130-159 mg/dLHigh LDL: 160-189 mg/dLVery High LDL: greater than or equal to 190 mg/dL HDL Cholesterol 36(L) >40 mg/dL [facility] Comment:Desirable HDL: great er than 40 mg/dL Note: This HDL assay may give artificially low results in patients with liver disease. Blood Venous blood specimen / Unknown 01/16/2024 12:07 PM EDT 01/16/2024 1:05 PM EDT us Jacque Feldman AUTO REBUILDER LAB BLOOD ORDERABLES Final Resu lt [facility] [address] [place] [phone] from Last 3 Months or Most Recently Relevant to Health Maintenance [facility] STAND CHILD Care Teams Cartographic Engineer Relationship Specialty Start Date End Date Valerie Kulkarni NP [address] [place] [phone] PCP - General Family Medicine 06/21/23
--- OUTSIDE RECORDS SUMMARY | 2024-06-18 19:56 | XMS_ITS | Encounter Summary ---
Author Organization [employer] Address [address] [facility] 7t [place] [address] Care Team Providers Care Flour Distributor Name Role Phone Valerie Kulkarni NP Primary Care Provider [phone] Reason for Visit * Reason Onset Date Comments No Show 06/01/2024 Encounter Details Date Type Department Care Team ([facility] Contact Info) Description 06/01/2024 Telephone [facility] [address] [place], [place] [phone] Valerie Kulkarni NP [address] [place] [address] No Show Social History Tobacco Use Types Packs/Day Years [...] encounter Miscellaneous Notes * Telephone Encounter - Ava Cooper - 06/01/2024 2:13 PM EST Patient no show to follow up appointment on 06/01/24. documented in this encounter Plan of Treatment Not on file documented as of this encounter Visit Diagnoses Not on filedocumented in this encounter Additional Health Concerns Assessment Noted Time PHQ-9 Depression Total Score: 24 024 11:42 AM EDT documented as of this encounter Care Teams Flour Distributor Relationship Specialty Start Date End Date Valerie Kulkarni NP [address] [place] [phone] PCP - General Family Medicine 06/21/23 documented as of this encounter
--- OUTSIDE RECORDS SUMMARY | 2024-06-18 19:56 | XMS_ITS | Encounter Summary ---
Author Organization [employer] Address [address] [facility] 7 [place] [address] Care Team Providers Care Frickertron Checker Name Role Phone Cassie Yeager MD Primary Care Provider [phone] Jacque Feldman Primary Care Provider [phone] Valerie Kulkarni NP Primary Care Provider [phone] Reason for Visit * Reason Comments Med Refill Encounter Details Date Type Department Care Team (Late st Contact Info) Description 09/24/2022 Refill [facility] [address] [place], [place] [phone] Cassie Yeager MD [address] [place], [place] [phone] ADHD (attention deficit hyperactivity disorder), combined type Social History Tobacco Use Types Packs/Day Years [...] documented as of this encounter Visit Diagnoses Diagnosis ADHD (attention deficit hyperactivity disorder), combined type Attention deficit disorder with hyperactivity documented in this encounter Care Teams Frickertron Checker Relationship Specialty Start Date End Date Cassie Yeager MD [address] [place], [place] [phone] PCP - General Pediatrics 04/02/14 04/18/23 Jacque Feldman FNP [address] [place] [address] PCP - General Family Medicine 04/19/23 06/20/23 Valerie Kulkarni NP [address] [place] [address] PCP - General Family Medicine 06/21/23 documented as of this encounter
--- OUTSIDE RECORDS SUMMARY | 2024-06-18 19:56 | XMS_ITS | Encounter Summary ---
Author Organization [employer] Address [address] [facility] [address]t [place] [address] Care Team Providers Care Tobacco Conditioner Name Role Phone Valerie Kulkarni NP Primary Care Provider [phone] Encounter Details Date Type Department Care Team ([facility] st Contact Info) Description 04/03/2024 Orders Only [facility] [address] [place], [place] [phone] Bruce Vieyra MD [address] [place] [address] Chlamydia trachomatis infection (Primary Dx) Social History Tobacco Use Types Packs/Day Years [...] as of this encounter Visit Diagnoses Diagnosis Chlamydia trachomatis infection- Primary Chlamydia trachomatis infection of unspecified site documented in this encounter Additional Health Concerns Assessment Noted Time PHQ-9 Depression Total Score: 24 024 11:42 AM EDT documented as of this encounter Care Teams Tobacco Conditioner Relationship Specialty Start Date End Date Valerie Kulkarni NP [address] [place] [phone] PCP - General Family Medicine 06/21/23 documented as of this encounter
--- OUTSIDE RECORDS SUMMARY | 2024-06-18 19:56 | XMS_ITS | Encounter Summary ---
Author Organization [employer] Address [address] [facility] [address] [place] [address] Care Team Providers Care Customer Support Executive Name Role Phone Valerie Kulkarni NP Primary Care Provider [phone] Encounter Details Date Type Department Care Team (Latest Contact Info) Description 06/18/2024 Travel Social History Tobacco Use Types Packs/Day Years [...] documented as of this encounter Care Teams Customer Support Executive Relationship Specialty Start Date End Date Valerie Kulkarni NP [address] [place] [address] PCP - General Family Medicine 06/21/23 documented as of this encounter
[2024-06-19 11:49] LABS: Bacterial Vaginosis PCR NEGATIVE (Negative); Candida Group PCR NOT DETECTED (Not Detect); Candida glab krusei PCR NOT DETECTED (Not Detect); Trichomonas vaginalis PCR NOT DETECTED (Not Detect)
[2024-06-19 12:20] LABS: CT PCR NOT DETECTED (Not Detect.); NG PCR NOT DETECTED (Not Detect.)
== END 2024-06-18 16:36 | disposition home or self-care (01) ==
LOC: HO.HHCLNP 16:35
PROVIDERS: Visit Provider Advanced Practice Midwife
DX: R30.0 Dysuria (principal); N89.8 Other specified noninflammatory disorders of vagina
CPT/HCPCS: 81515; 87086; 87147; 87491; 87591

== ENCOUNTER 2024-07-25 13:16 | Emergency (ER) | payer MEDICAID, SELFPAY ==
[2024-07-25 13:22] VITALS: BP 114/86; PULSE 102; O2SAT 96
--- NOTE | 2024-07-25 13:30 | PC.NURSE ---
Pt. arrives to ED very tearful and visibly upset. States to this RN that she wants to just leave and she told EMS drivers that she didn't want to come to the hospital. Pt. also states that she has been having seizures since middle school, and despite having seen multiple Neurologists in [place] and having had multiple EEGs, no one has ever put her on seizure medications and she is unsure as to why. Pt. remains adamant about leaving. MANNY Jones notified.
[2024-07-25 13:33] VITALS: BP 117/54; PULSE 85; RESP 16; TEMP 36.7; O2SAT 99; BMI 42.3
--- NOTE | 2024-07-25 13:45 | ED.SEIZURE ---
HPI - Seizure General Chief Complaint: Seizure Stated Complaint: SZ PER EMS Time Seen by Provider: 07/25/24 13:19 Source: patient, family and EMS Mode of arrival: EMS Limitations: no limitations History of Present Illness ED Provider: ZULLY SALVADOR PA-C HPI Narrative: 19 year old female with pmhx significant for anxiety and depression presents to the ED today via EMS for evaluation of ?seizure occurring [employer]AR[employer] MECH[employer]IC. 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 She has been evaluated numerous times by neurology with unremarkable EEGs. She has never been placed on any medication for this. 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 She tells me her classmates said she was staring off into space for approximately 10 minutes. Per EMS, staff reported that patient had a grand mal seizure . Patient does not have history of grand mal seizures. She denies tongue bite or bladder incontinence. She was already lying in a hospital bed at the time of incident. She did not fall to the ground or strike her head. She is not postical on arrival. She is alert and oriented, no difficulty answering questions. Denies recent illness. vaccines utd. Related Data Previous Rx's ?Medication ?Instructions ?Recorded hydroxyzine HCl 50 mg tablet 50 mg PO QID PRN anxiety #10 tabs 05/03/20 amoxicillin 500 mg capsule 500 mg PO BID 10 days #20 caps 04/15/21 ibuprofen 400 mg tablet 400 mg PO Q6H PRN pain #28 tabs 04/15/21 prednisone 20 mg tablet 40 mg (2 x 20 mg) PO DAILY 5 days 04/15/21 #10 tabs acetaminophen 500 mg tablet 1,000 mg (2 x 500 mg) PO Q6H PRN 04/16/23 (Tylenol Extra Strength) fever or pain #20 tabs ibuprofen 400 mg tablet 400 mg PO TID PRN fever or pain 04/16/23 #30 tabs ondansetron 4 mg disintegrating 4 mg PO Q6-8H PRN nausea and 04/16/23 tablet vomiting #14 tabs Allergies Allergy/AdvReac Type Severity Reaction Status Date / Time No Known Allergies Allergy Verified 07/25/24 13:34 Review of Systems Review of Systems: Yes all other systems are reviewed and are negative PMFSH Past Medical History Attestation statement: The following information was validated with the patient. Source: old records reviewed and nursing notes reviewed Medical History Seizures Anxiety Social History Social History Alcohol intake: current Alcohol intake frequency: holidays/special occasions only Substance Use Type: Marijuana Advance Directives: No Advance Directives Information Provided: Yes Do you have a plan to hurt others: No Plan Physical Exam Vital Signs: Vital Signs: Last Vital Signs Temp 98.1 F 07/25/24 14:26 Pulse 85 07/25/24 14:26 Resp 16 07/25/24 14:26 BP 117/54 L 07/25/24 14:26 Pulse Ox 99 07/25/24 14:26 O2 Del Method Room Air 07/25/24 14:26 BMI result Body Mass Index 42.3 vital signs stable General: well appearing, in no acute distress. Skin: Warm, dry, intact. No rashes or lesions. Head: Normocephalic, atraumatic. EENT: Hearing is intact b/l. Conjunctiva clear. PERRLA. EOM intact. Moist mucous membranes.?no tongue laceration. Neck: Supple without LAD Cardiac: Chest wall symmetric. RRR. Lungs: Normal respiratory effort without accessory muscle use. CTA bilaterally Abdomen: Soft, non-tender, non-distended. No rebound tenderness or guarding Back: No midline spinous or paraspinal tenderness. No step off deformity. Ext: Upper and lower extremities atraumatic, without tenderness, deformity, swelling or erythema Neuro: AOx3. Normal speech. Ambulating with steady gait. Psych: Appropriate mood and affect. Responds appropriately to questions. Course Course Course Narrative: Immediately on arrival, patient tearful and upset. I was called to bedside. Patient states she does not want to be here. She tells me that she was told by her program that she could not decline EMS transport. She does not want work up for this as it has happened numerous times in the past. she does not have any complaints at present. I was able to perform a physical exam which was quite benign. she is ambulating around room with steady ait. As I did not witness the episode, I advised patient to stay for work up including blood work/ possible treatment. She declines at this time, stating she cannot afford work up. She does not currently have health insurance and does not wish to have any blood work, imaging, or medication. I discussed risks of leaving the ED without work up including but not limited to continued seizure activity and even . patient verbalizes understanding and is choosing to sign out AMA. her mother is at bedside. advised to follow up with neurology/ pcp outpatient. educated on seizure precautions. she verbalizes understanding. AMA paperwork signed. Medical Decision Making Medical Decision Making [facility] Narrative: 19 year old female with pmhx significant for anxiety and depression presents to the ED today via EMS for evaluation of ?seizure occurring [employer]. her vitals are stable. she is nontoxic appearing and in NAD. tearful on my exam. AOX3, not postictal as reported by triage nurse. exam benign. no tongue laceration. exam nonfocal. Differential diagnosis includes anemia, electrolyte abnormality, migraine, seizure NIH 0 -unlikely CVA/TIA Differential Diagnosis Differential Diagnoses: The differential diagnosis associated with the presentation includes as above. Admission/Observation not indicated. Independent Historian Clinical information obtained from an independent historian. History obtained from or confirmed by: Parent and EMS Social Determinants Patient?s care significantly limited by Social Determinants of Health including: Other Social Determinant of Health Critical Care Time Critical Care Time Critical Care Time: No Discharge Plan Discharge Clinical Impression: Absence seizure Patient Disposition: Left Against Medical Advice Instructions: Recurrent Seizures in Adults (ED) Additional Instructions: You were brought to the ED today for evaluation after serizure like activity. You are declining any work up in ED today and are choosing to leave against medical advise. Given question of seizure activity, please do not drive/ operate machinery for at least 6 months. Follow up with neurology/ PCP. Return with new or worsening symptoms. In the case of an emergency call 911. Prescriptions: No Action hydroxyzine HCl 50 mg tablet 50 mg PO QID PRN (Reason: anxiety) Qty: 10 0RF Rx Instructions: This medication may cause drowsiness amoxicillin 500 mg capsule 500 mg PO BID 10 Days Qty: 20 0RF prednisone 20 mg tablet 40 mg PO DAILY 5 Days Qty: 10 0RF ibuprofen 400 mg tablet 400 mg PO Q6H PRN (Reason: pain) Qty: 28 0RF ondansetron 4 mg tablet,disintegrating 4 mg PO Q6-8H PRN (Reason: nausea and vomiting) Qty: 14 0RF acetaminophen [Tylenol Extra Strength] 500 mg tablet 1,000 mg PO Q6H PRN (Reason: fever or pain) Qty: 20 0RF ibuprofen 400 mg tablet 400 mg PO TID PRN (Reason: fever or pain) Qty: 30 0RF Referrals: [facility] [place]Provider Group] Valerie Kulkarni, ELECTRICAL POWER ENGINEER [Primary Care Provider] - Stand Alone Forms: Against Medical Advice Interventions: ED Discharge Assessment Last Done: 07/25/24 14:26 Discharge Date/Time: 07/25/24 14:26 Print Language: Botswanan
--- NOTE | 2024-07-25 14:25 | PC.NURSE ---
D/C and AMA forms signed by pt.
[2024-07-25 14:26] VITALS: BP 117/54; PULSE 85; RESP 16; TEMP 36.7; O2SAT 99
== END 2024-07-25 14:26 | disposition left against medical advice (07) ==
PROVIDERS: Emergency Provider Emergency Medicine; PCP Nurse Practitioner Family
DX: G40.A09 Absence epileptic syndrome, not intractable, without status epilepticus (principal)
CPT/HCPCS: 99282

== ENCOUNTER 2024-08-08 21:20 | Emergency (ER) | payer MEDICAID, SELFPAY ==
--- NOTE | 2024-08-08 | ECG_ITS ---
Test Reason : chest pain Blood Pressure : */* mmHG Vent. Rate : 77 BPM Atrial Rate : 77 BPM P-R Int : 112 ms QRS Dur : 88 ms QT Int : 356 ms P-R-T Axes : 53 36 34 degrees QTcB Int : 402 ms Normal sinus rhythm with sinus arrhythmia Normal ECG No previous ECGs available Referred By: Generic ED Physician Electronically Signed By: Lucas Matos
--- NOTE | ~2024-08-08 | XR_ITS ---
CLINICAL HISTORY: chest pain 2 view chest x-ray Comparison: None Findings: The lungs are clear. Heart size is normal. No acute fracture. IMPRESSION: 1. No acute findings. This document has been electronically signed by: Marcio Martinez MD on 08/08/2024 22:28:54
[2024-08-08 21:29] VITALS: BP 108/45; PULSE 81; RESP 20; TEMP 36.5; O2SAT 100; BMI 40.3
[2024-08-08 22:04] LABS: MANUAL DIFF FLAG NO
[2024-08-08 22:06] LABS: Basophils Percent Auto 0.3 % (0-2); Hemoglobin 11.9 g/dl (12.0-16.0); Lymphocytes Percent Auto 25.1 % (20-40); Mean Corpuscular HGB Conc 33.1 g/dl (31.0-35.0); Mean Corpuscular Hemoglobin 28.5 pg (27.0-33.0); Mean Platelet Volume 10.9 fL (9.4-12.3); PLT CLUMP 1; Red Cell Distribution Width 13.1 % (11.0-16.0); SCAN SMEAR FLAG 1
[2024-08-08 22:08] LABS: Eosinophils Absolute Auto 0.2 X10*3/uL (0.0-0.4); Eosinophils Percent Auto 2.3 % (0-4); Imm Gran Abs Auto 0.02 X10*3/uL (0.00-0.03); Imm Gran Pct Auto 0.2 % (0.0-0.4); Lymphocytes Absolute Auto 2.3 X10*3/uL (1.2-4.9); Mean Corpuscular Volume 86.3 fL (80.0-98.0); Monocytes Absolute Auto 0.7 X10*3/uL (0.1-1.2); Monocytes Percent Auto 7.3 % (2-11); Neutrophils Absolute Auto 5.8 x10*3/uL (2.0-8.3); Neutrophils Percent Auto 64.8 % (45-73); Red Blood Count 4.17 X10*6/uL (4.20-5.50)
[2024-08-08 22:20] LABS: Alanine Aminotransferase 31 U/L (0-31); Albumin Level 3.6 g/dL (3.5-5.0); Alkaline Phosphatase 61 U/L (39-117); Anion Gap 10 (12-20); Aspartate Amino Transferase 26 U/L (5-31); Bilirubin Direct < 0.2 mg/dL (0.0-0.5); Bilirubin Total 0.2 mg/dL (0.0-1.0); Blood Urea Nitrogen 14 mg/dL (9-16); Calcium 8.5 mg/dL (8.4-10.2); Carbon Dioxide 24 mmol/L (22-29); Chloride 108 mmol/L (96-108); Creatinine Clr Calc Pharmacy 127.8; Estimated Glomerular Filt Rate > 60; Glucose Random 78 mg/dL (60-115); Potassium 4.1 mmol/L (3.3-5.1); Sodium 138 mmol/L (135-145); Total Protein 7.5 g/dL (6.5-8.0)
[2024-08-08 22:27] LABS: Troponin-I High Sensitivity < 2.7 ng/L (<3.5-17.0)
[2024-08-08 22:29] LABS: Platelet Count 214 X10*3/uL (160-400)
--- NOTE | 2024-08-08 23:08 | ED.CHESTPAIN ---
HPI - Chest Pain General Chief Complaint: Chest Pain Stated Complaint: chest pain Time Seen by Provider: 08/08/24 23:03 Source: patient Mode of arrival: ambulatory Limitations: no limitations History of Present Illness ED Provider: HPI narrative: Patient 19 years old complaining of pain in the left side chest for walking to the school pain is localized to the left costochondral area which increases on movements and taking deep breaths no shortness a breath saturating 100% at room air patient's the labs done prior to my evaluation evaluation which showed negative D-dimer negative troponin negative EKG with stable vitals no fever no chills Related Data Previous Rx's ?Medication ?Instructions ?Recorded hydroxyzine HCl 50 mg tablet 50 mg PO QID PRN anxiety #10 tabs 05/03/20 amoxicillin 500 mg capsule 500 mg PO BID 10 days #20 caps 04/15/21 ibuprofen 400 mg tablet 400 mg PO Q6H PRN pain #28 tabs 04/15/21 prednisone 20 mg tablet 40 mg (2 x 20 mg) PO DAILY 5 days 04/15/21 #10 tabs acetaminophen 500 mg tablet 1,000 mg (2 x 500 mg) PO Q6H PRN 04/16/23 (Tylenol Extra Strength) fever or pain #20 tabs ibuprofen 400 mg tablet 400 mg PO TID PRN fever or pain 04/16/23 #30 tabs ondansetron 4 mg disintegrating 4 mg PO Q6-8H PRN nausea and 04/16/23 tablet vomiting #14 tabs ibuprofen 600 mg tablet 600 mg PO Q6H PRN fever or pain 08/08/24 #30 tabs Allergies Allergy/AdvReac Type Severity Reaction Status Date / Time No Known Allergies Allergy Verified 08/08/24 21:32 Review of Systems Review of Systems: Yes all other systems are reviewed and are negative PMFSH Past Medical History Medical History Seizures Anxiety Social History Social History Alcohol intake: current Alcohol intake frequency: holidays/special occasions only Smoked in Last 30 Days: No Substance Use Type: Marijuana Advance Directives: No Advance Directives Information Provided: No Do you have a plan to hurt others: No Plan Physical Exam Vital Signs: Vital Signs: Last Vital Signs Temp 97.9 F 08/09/24 00:04 Pulse 75 08/09/24 00:04 Resp 16 08/09/24 00:04 BP 107/51 L 08/09/24 00:04 Pulse Ox 100 08/09/24 00:04 O2 Del Method Room Air 08/09/24 00:04 BMI result Body Mass Index 40.3 Appearance: Alert. Oriented X3. No acute distress. Eyes: PERRLA, No Nystagmus ENT: Pharynx normal. Oral Mucosa moist Neck: Normal inspection. Neck supple. CVS: Normal heart rate and rhythm. Pulses normal. Tender left 2nd intercostal space Respiratory: No respiratory distress. Equal air entry bilateral, no wheezing/rales/rhonchi Abdomen: Soft and nontender. Bowel sounds are present, no mass palpable, no CVA tenderness Skin: Skin warm and dry. Normal skin color. Normal skin turgor. Extremities: No lower extremity edema. No calf tenderness Neuro: Oriented X 3. No motor deficit. Medications Administered Discontinued Medications Generic Name Dose Route Start Last Admin Trade Name Freq PRN Reason Stop Dose Admin Ibuprofen 600 mg 08/08/24 23:09 08/08/24 23:26 Ibuprofen 600 Mg Tablet PO 08/08/24 23:10 600 mg ONCE ONE Administration Medical Decision Making Medical Decision Making [facility] Narrative: Patient with localized tenderness left 2nd intercostal space clinically costochondritis at heart score of 0 D-dimer negative for PE will discharge patient home on ibuprofen Differential Diagnosis Differential Diagnoses: The differential diagnosis associated with the presentation includes Costochondritis/musculoskeletal/ACS/PE Lab Data [facility] Lab Attestation statement: I reviewed the patient's lab results. 08/08/24 21:57 08/08/24 21:57 Labs: Lab Results 08/08/24 Range/Units 21:57 WBC 9.0 (4.8-10.8) X10*3/uL RBC 4.17 L (4.20-5.50) X10*6/uL Hgb 11.9 L (12.0-16.0) g/dl Hct 36.0 L (37.0-47.0) % MCV 86.3 (80.0-98.0) fL MCH 28.5 (27.0-33.0) pg MCHC 33.1 (31.0-35.0) g/dl RDW 13.1 (11.0-16.0) % Plt Count 214 D (160-400) X10*3/uL MPV 10.9 (9.4-12.3) fL Immature Gran % (Auto) 0.2 (0.0-0.4) % Neut % (Auto) 64.8 (45-73) % Lymph % (Auto) 25.1 (20-40) % Dewey % (Auto) 7.3 (2-11) % Eos % (Auto) 2.3 (0-4) % Baso % (Auto) 0.3 (0-2) % Lymph # (Auto) 2.3 (1.2-4.9) X10*3/uL Dewey # (Auto) 0.7 (0.1-1.2) X10*3/uL Eos # (Auto) 0.2 (0.0-0.4) X10*3/uL Baso # (Auto) 0.0 (0.0-0.2) X10*3/uL Abs Immat Gran (auto) 0.02 (0.00-0.03) X10*3/uL Absolute Neuts (auto) 5.8 (2.0-8.3) x10*3/uL Absolute Nucleated RBC 0.000 (0.0-0.012) X10*3/uL Nucleated RBC % (auto) 0.0 (0.0-0.2) /100WBC D-Dimer High Sensitivty < 150 NG/ML Sodium 138 (135-145) mmol/L Potassium 4.1 (3.3-5.1) mmol/L Chloride 108 (96-108) mmol/L Carbon Dioxide 24 (22-29) mmol/L Anion Gap 10 L (12-20) BUN 14 (9-16) mg/dL Creatinine 0.89 (0.5-1.4) mg/dL Estim Creat Clear Calc 127.8 Estimated GFR > 60 Random Glucose 78 (60-115) mg/dL Calcium 8.5 (8.4-10.2) mg/dL Total Bilirubin 0.2 (0.0-1.0) mg/dL Direct Bilirubin < 0.2 (0.0-0.5) mg/dL AST 26 (5-31) U/L ALT 31 (0-31) U/L Alkaline Phosphatase 61 (39-117) U/L Troponin I High Sens < 2.7 (<3.5-17.0) ng/L Total Protein 7.5 (6.5-8.0) g/dL Albumin 3.6 (3.5-5.0) g/dL Independent Interpretation I performed an independent interpretation of an: EKG Interpretation: Normal sinus rhythm heart rate 77 beats per minute normal interval normal axis no acute ST-T changes no acute ischemia impression normal EKG Radiology Impression Discussion of test interpretation with radiology: I have reviewed the radiologist's reading. Radiologist Impression: NAD Discharge Plan Discharge Clinical Impression: Costalchondritis Patient Disposition: Home, Self-Care Instructions: Costochondritis (ED) Additional Instructions: You have inflammation of the cartilage on the left side no evidence of cardiac injury Take ibuprofen for pain Prescriptions: New ibuprofen 600 mg tablet 600 mg PO Q6H PRN (Reason: fever or pain) Qty: 30 0RF No Action hydroxyzine HCl 50 mg tablet 50 mg PO QID PRN (Reason: anxiety) Qty: 10 0RF Rx Instructions: This medication may cause drowsiness amoxicillin 500 mg capsule 500 mg PO BID 10 Days Qty: 20 0RF prednisone 20 mg tablet 40 mg PO DAILY 5 Days Qty: 10 0RF ibuprofen 400 mg tablet 400 mg PO Q6H PRN (Reason: pain) Qty: 28 0RF ondansetron 4 mg tablet,disintegrating 4 mg PO Q6-8H PRN (Reason: nausea and vomiting) Qty: 14 0RF acetaminophen [Tylenol Extra Strength] 500 mg tablet 1,000 mg PO Q6H PRN (Reason: fever or pain) Qty: 20 0RF ibuprofen 400 mg tablet 400 mg PO TID PRN (Reason: fever or pain) Qty: 30 0RF Interventions: ED Discharge Assessment Last Done: 08/09/24 00:04 Discharge Date/Time: 08/09/24 00:05 Print Language: Urdu
[2024-08-08 23:25] LABS: D Dimer High Sensitivity < 150 NG/ML
[2024-08-08] MEDS: Ibuprofen 600 MG TABLET PO (23:26)
--- NOTE | 2024-08-08 23:26 | PC.NURSE ---
Pt brought to [facility] for treatment assumed care of pt at this time. A&Ox3 skin pwd respirations even unlabored, endorsing left chest pain beginning this morning radiating into back. Worse with inspiration, slight non productive cough. Denies accompanying symptoms. Medicated per MAR for pain, awaiting primary provider eval, aware of plan of care.
[2024-08-09 00:01] VITALS: BP 107/51; PULSE 75; RESP 16; TEMP 36.6; O2SAT 100
[2024-08-09 00:04] VITALS: BP 107/51; PULSE 75; RESP 16; TEMP 36.6; O2SAT 100
== END 2024-08-09 00:05 | disposition home or self-care (01) ==
PROVIDERS: Emergency Medicine; Emergency Provider Internal Medicine; PCP Nurse Practitioner Family
DX: M94.0 Chondrocostal junction syndrome [Tietze] (principal); R07.89 Other chest pain; I49.8 Other specified cardiac arrhythmias
CPT/HCPCS: 36415; 71046; 80048; 80076; 84484; 85025; 85379; 93005; 99283; 99284

== ENCOUNTER → 2024-08-08 21:37 | Outpatient (BNV) | payer MEDICAID, SELFPAY | PROVIDERS: Emergency Provider Internal Medicine; PCP Nurse Practitioner Family; Visit Provider Internal Medicine Cardiovascular Disease | DX: R07.9 Chest pain, unspecified (principal) | CPT/HCPCS: 93010 ==

== ENCOUNTER → 2024-08-08 21:58 | Outpatient (BNV) | payer MEDICAID, SELFPAY | PROVIDERS: PCP Nurse Practitioner Family; Visit Provider Radiology Diagnostic Radiology | DX: R07.9 Chest pain, unspecified (principal) | CPT/HCPCS: 71046 ==

== ENCOUNTER 2024-09-21 17:55 | Outpatient (REF) | payer MEDICAID, SELFPAY ==
[2024-09-22 12:03] LABS: Bacterial Vaginosis PCR NEGATIVE (Negative); Candida Group PCR NOT DETECTED (Not Detect); Candida glab krusei PCR NOT DETECTED (Not Detect); Trichomonas vaginalis PCR NOT DETECTED (Not Detect)
== END 2024-09-21 17:56 | disposition home or self-care (01) ==
LOC: HO.HHCLNP 17:55
PROVIDERS: Visit Provider Pediatrics
DX: R30.0 Dysuria (principal)
CPT/HCPCS: 81515; 87086

== ENCOUNTER 2025-05-03 22:03 | Emergency (ER) | payer MEDICAID, SELFPAY ==
--- NOTE | ~2025-05-03 | XR_ITS ---
CLINICAL HISTORY: inj 4 view left wrist Comparison: None provided Findings: No fractures or dislocations. No arthritic change. No radiopaque foreign body. IMPRESSION: 1. No acute findings This document has been electronically signed by: Ramirez Del Valle MD on 05/03/2025 23:03:22
--- NOTE | ~2025-05-03 | XR_ITS ---
CLINICAL HISTORY: inj 3 view left hand Comparison: None provided Findings: No fractures or dislocations. No arthritic changes. No erosions. No radiopaque foreign body. IMPRESSION: 1. No acute findings This document has been electronically signed by: Ramirez Del Valle MD on 05/03/2025 23:01:42
[2025-05-03 22:09] VITALS: BP 142/63; PULSE 94; RESP 18; TEMP 36.4; O2SAT 99; BMI 44.0
--- NOTE | 2025-05-03 23:16 | ED.EXTPRO ---
HPI - Extremity Problem General Chief complaint: Extremity Injury, Upper Stated complaint: RO Fracture left wrist Time Seen by Provider: 05/03/25 23:09 Source: patient Mode of arrival: ambulatory Limitations: no limitations History of Present Illness ED Provider: Dr. Samantha Cardona HPI Narrative: Patient comes to the emergency room complaining of left-sided wrist pain. Patient states that 4 days ago she was playing rough with Toradol cousin and accidentally he hit her with his knee in her wrist. Patient states that she has now a bruise and wanted to make sure that she is fine. Patient states that she is able to flex and extend all fingers in the hand, also she is able to flex and extend the wrist with normal range of motion. Related Data Previous Rx's ?Medication ?Instructions ?Recorded hydroxyzine HCl 50 mg tablet 50 mg PO QID PRN anxiety #10 tabs 05/03/20 amoxicillin 500 mg capsule 500 mg PO BID 10 days #20 caps 04/15/21 ibuprofen 400 mg tablet 400 mg PO Q6H PRN pain #28 tabs 04/15/21 prednisone 20 mg tablet 40 mg (2 x 20 mg) PO DAILY 5 days 04/15/21 #10 tabs acetaminophen 500 mg tablet 1,000 mg (2 x 500 mg) PO Q6H PRN 04/16/23 (Tylenol Extra Strength) fever or pain #20 tabs ibuprofen 400 mg tablet 400 mg PO TID PRN fever or pain 04/16/23 #30 tabs ondansetron 4 mg disintegrating 4 mg PO Q6-8H PRN nausea and 04/16/23 tablet vomiting #14 tabs ibuprofen 600 mg tablet 600 mg PO Q6H PRN fever or pain 08/08/24 #30 tabs ibuprofen 600 mg tablet 600 mg PO Q8H PRN fever or pain 05/03/25 #20 tabs Allergies Allergy/AdvReac Type Severity Reaction Status Date / Time No Known Allergies Allergy Verified 05/03/25 22:11 Review of Systems Review of Systems: Constitutional : No Weight loss, No Fever, No Chills, No Night Sweats, No Fatigue, No Malaise ENT/Mouth : No Hearing loss, No Ear Pain, No Nasal Congestion, No Sinus Pain, No Hoarseness, No sore throat, No Rhinorrhea, No Swallowing Difficulty Eyes: No Eye Pain, No Swelling, No Redness, No Foreign Body, No Discharge, No Vision Changes Cardiovascular : No Chest Pain, No SOB, No Dyspnea on Exertion, No Orthopnea, No Edema, No Palpitations Respiratory : No Cough, No Sputum, No Wheezing, No Smoke Exposure, No Dyspnea Gastrointestinal : No Nausea, No Vomiting, No Diarrhea, No Constipation, No abdominal Pain, No Hematochezia, No Melena Genitourinary : no irregular bleeding, No Dysuria, No Urinary Frequency, No Hematuria, No Urinary Incontinence, No Urgency, No Flank Pain, No Urinary Flow Changes, No Hesitancy Musculoskeletal : Complaining of left wrist pain and an ecchymosis on the dorsum and dorsal aspect of the wrist, No Myalgias, No Joint Swelling Skin : No Skin Lesions, No rash Neuro : No Weakness, No Numbness, No Paresthesias, No Loss of Consciousness, No Dizziness, No Headache Psych : No Anxiety/Panic, No Depression, No SI/HI/AH/VH, No Social Issues, Heme/Lymph: No Bruising, No Bleeding,No Lymphadenopathy Endocrine : No Polyuria, No Polydipsia, No Temperature Intolerance [facility] Past Medical History Medical History Seizures Anxiety Social History Social History Alcohol intake: current Alcohol intake frequency: holidays/special occasions only Substance Use Type: Marijuana Physical Exam Exam: Exam: Appearance: Alert. Oriented X3. No acute distress. Eyes: Pupils equal, round and reactive to light. ENT: Pharynx normal. Neck: Normal inspection. Neck supple. No lymph nodes noted. No crepitus CVS: Normal heart rate and rhythm. Pulses normal. Normal S1 and S2 Respiratory: No respiratory distress. Breath sounds normal. No Wheezing. No rales Abdomen: Soft and nontender. No rigidity. No distention. Skin: Skin warm and dry. Normal skin color. Normal skin turgor. Extremities: No lower extremity edema. No Lacerations. No Rash. Patient is able to flex and extend all fingers of the left hand, is able to flex and extend the wrist, patient has older ecchymosis and the dorsum and volar aspect of the wrist. Patient has normal strength in all extremities 5/5 Neuro: Oriented X 3. No motor deficit. No sensory deficit. Moving all extremities. No slurred speech. CN 2 through 12 grossly intact Psych: calm, cooperative, normal affect Vital Signs: Vital Signs: Last Vital Signs Temp 97.6 F 05/03/25 22:09 Pulse 94 05/03/25 22:09 Resp 18 05/03/25 22:09 BP 142/63 H 05/03/25 22:09 Pulse Ox 99 05/03/25 22:09 O2 Del Method Room Air 05/03/25 22:09 BMI result Body Mass Index 44.0 Medical Decision Making Medical Decision Making [facility] Narrative: I discussed the x-rays of the wrist and hand with the patient, no acute fractures. Patient feels reassured, ready for discharge. Patient states that she has Tylenol at home Independent Interpretation I performed an independent interpretation of an: Plain X-Ray Radiology Impression Discussion of test interpretation with radiology: I have reviewed the radiologist's reading. Radiologist Impression: X-ray of the hand and wrist No fractures or dislocations. No arthritic change. No radiopaque foreign body. Discharge Plan Discharge Clinical Impression: Contusion of left wrist Patient Disposition: Home, Self-Care Instructions: Contusion in Adults (ED) Additional Instructions: Please follow-up with your primary care physician tomorrow. If you have any worsening or new symptoms, please return to the emergency room or call 911 Prescriptions: New ibuprofen 600 mg tablet 600 mg PO Q8H PRN (Reason: fever or pain) Qty: 20 0RF No Action hydroxyzine HCl 50 mg tablet 50 mg PO QID PRN (Reason: anxiety) Qty: 10 0RF Rx Instructions: This medication may cause drowsiness amoxicillin 500 mg capsule 500 mg PO BID 10 Days Qty: 20 0RF prednisone 20 mg tablet 40 mg PO DAILY 5 Days Qty: 10 0RF ibuprofen 400 mg tablet 400 mg PO Q6H PRN (Reason: pain) Qty: 28 0RF ondansetron 4 mg tablet,disintegrating 4 mg PO Q6-8H PRN (Reason: nausea and vomiting) Qty: 14 0RF acetaminophen [Tylenol Extra Strength] 500 mg tablet 1,000 mg PO Q6H PRN (Reason: fever or pain) Qty: 20 0RF ibuprofen 400 mg tablet 400 mg PO TID PRN (Reason: fever or pain) Qty: 30 0RF ibuprofen 600 mg tablet 600 mg PO Q6H PRN (Reason: fever or pain) Qty: 30 0RF Print Language: Nigerien
[2025-05-03 23:19] VITALS: BP 142/63; PULSE 94; RESP 18; TEMP 36.4; O2SAT 99
--- OUTSIDE RECORDS SUMMARY | 2025-05-03 23:21 | XMS_ITS | Encounter Summary ---
Author Organization [employer] Address [address] [place] [address] Care Team Providers Care Commercial Finance Manager Name Role Phone Valerie Kulkarni NP Primary Care Provider [phone] Encounter Details Date Type Department Care Team ([facility] st Contact Info) Description 02/22/[address] [facility] [address] [place] [address] Ken Dias, DMD [address] [place] [address] Social History Tobacco Use Types Packs/Day Years [...] documented as of this encounter Care Teams Commercial Finance Manager Relationship Specialty Start Date End Date Valerie Kulkarni NP [address] [place] [address] PCP - General Family Medicine 06/21/23 documented as of this encounter
--- OUTSIDE RECORDS SUMMARY | 2025-05-03 23:21 | XMS_ITS | Encounter Summary ---
Author Organization [employer] Address [address] [facility] [address] [place] [address] Care Team Providers Care Management Instructor Name Role Phone Valerie Kulkarni NP Primary Care Provider [phone] Encounter Details Date Type Department Care Team ([facility] st Contact Info) Description 05/14/2024 Orders Only [facility] [address] [place] [address] Provider, MD Toby Social History Tobacco Use [...] documented as of this encounter Care Teams Management Instructor Relationship Specialty Start Date End Date Valerie Kulkarni NP [address] [place] [id number] PCP - General Family Medicine 06/21/23 documented as of this encounter
--- OUTSIDE RECORDS SUMMARY | 2025-05-03 23:21 | XMS_ITS | Encounter Summary ---
Author Organization [employer] Address [address] [facility] 7t [place] [address] Care Team Providers Care Exhibition Specialist Name Role Phone Valerie Kulkarni NP Primary Care Provider [phone] Reason for Visit * Reason Onset Date Comments running late dental appt 03/13/2025 Encounter Details Date Type Department Care Team (Late st Contact Info) Description 03/13/2025 Telephone [facility] ADULT D[facility]AL [address] [place], [place] [phone] Louie Aponte, DMD [address] [place] [address] running late dental appt Social History Tobacco Use Types Packs/Day Years [...] encounter Miscellaneous Notes * Telephone Encounter - Galina Beltran - 03/13/2025 10:33 AM EDT Jean Carlos Mathews 2005 patient called in stating he is running late and asked about threshold Patient has been informed there is a 10 minute leeway.. Anything after that appointment may need to be rescheduled or wait listed. Patient has been informed that it would be provider discretion.Patient understood DR documented in this encounter Plan of Treatment Not on file documented as of this encounter Visit Diagnoses Not on filedocumented in this encounter Additional Health Concerns Assessment Noted Time PHQ-9 Depression Total Score: 24 024 11:42 AM EDT documented as of this encounter Care Teams Exhibition Specialist Relationship Specialty Start Date End Date Valerie Kulkarni NP [address] [place] [address] PCP - General Family Medicine 06/21/23 documented as of this encounter
--- OUTSIDE RECORDS SUMMARY | 2025-05-03 23:21 | XMS_ITS | Encounter Summary ---
Author Organization [employer] Address 75 [facility] 7t [place] [address] Care Team Providers Care Emergency Services Director Name Role Phone Cassie Yeager MD Primary Care Provider Jacque Feldman Primary Care Provider [phone] Valerie Kulkarni NP Primary Care Provider [phone] Reason for Visit * Reason Onset Date Comments Appointment Request 01/18/2023 Encounter Details Date Type Department Care Team (Late st Contact Info) Description 01/18/2023 Telephone [facility] MED[facility]INE [address] [place], [place] [phone] Cassie Yeager MD [address] [place], [place] [phone] Appointment Request Social History Tobacco Use Types [...] on filedocumented in this encounter Care Teams Emergency Services Director Relationship Specialty Start Date End Date Cassie Yeager MD [address] [place] [address] PCP - General Pediatrics 04/02/14 04/18/23 Jacque Feldman FNP [address] [place] [address] PCP - General Family Medicine 04/19/23 06/20/23 Valerie Kulkarni NP [address] [place] [address] PCP - General Family Medicine 06/21/23 documented as of this encounter
--- OUTSIDE RECORDS SUMMARY | 2025-05-03 23:21 | XMS_ITS | Encounter Summary ---
Author Organization [employer] Address 75 [facility] 7t [place] [address] Care Team Providers Care Bottling Line Operator Name Role Phone Valerie Kulkarni NP Primary Care Provider [phone] Encounter Details Date Type Department Care Team ([facility] st Contact Info) Description 04/03/2024 Orders Only [facility] CH[facility] MED & PEDS [address] [place], [place] [phone] Bruce Vieyra MD [address] [place] [address] Chlamydia trachomatis infection (Primary Dx) Social History [...] documented as of this encounter Care Teams Bottling Line Operator Relationship Specialty Start Date End Date Valerie Kulkarni NP [address] [place] [address] PCP - General Family Medicine 06/21/23 documented as of this encounter
--- OUTSIDE RECORDS SUMMARY | 2025-05-03 23:21 | XMS_ITS | Encounter Summary ---
Author Organization [employer] [facility] Address [address] [facility] 7t [place] [address] Care Team Providers Care Single Wire Saw Operator Name Role Phone Cassie Yeager MD Primary Care Provider Jacque Feldman Primary Care Provider [phone] Valerie Kulkarni NP Primary Care Provider Encounter Details Date Type Department Care Team (Late st Contact Info) Description 01/18/2023 Orders Only [facility] MEDICINE [address] [place], [place] [phone] Cassie Yeager MD [address] [place], [place] [phone] Social History Tobacco Use Types Packs/Day Years [...] on filedocumented in this encounter Care Teams Single Wire Saw Operator Relationship Specialty Start Date End Date Cassie Yeager MD [address] [place], [place] [phone] PCP - General Pediatrics 04/02/14 04/18/23 Jacque Feldman FNP [address] [place] [address] PCP - General Family Medicine 04/19/23 06/20/23 Valerie Kulkarni NP [address] [place] [address] PCP - General Family Medicine 06/21/23 documented as of this encounter
--- OUTSIDE RECORDS SUMMARY | 2025-05-03 23:21 | XMS_ITS | Clinical Summary ---
Author Organization [employer] Address 75 [facility] 7t [place] [address] Care Team Providers Care Facilitator Name Role Phone Valerie Kulkarni NP Primary Care Provider [phone] Allergies No known active allergies Medications * [...] for 23 days. 27 tablet 4 Active etonogestrel-elut ing (Nexplanon) 68 mg contraceptive implant 1 each by Implant route 1 (one) time. Inserted 12/11/2021 Active Sodium Fluoride (PreviDent 5000 Booster Plus) 1.1 % paste Apply 1 Application. to teeth 2 times daily. 112 g 3 5 Active Sodium Fluoride (PreviDent 5000 Booster Plus) 1.1 % paste Apply a smear of paste on the brush; brush thoroughly twice daily. Spit, do not rinse. 112 g 2 5 Active Active Problems Problem Noted Date Diagnosed Date Cannabis abuse, episodic use 05/13/2024 Elevated blood pressure reading 05/13/2024 Assessment & Plan (05/13/2024 7:14 PM EST): monitor SOLEDAD (generalized anxiety disorder) 05/02/2024 Assessment & Plan (05/13/2024 7:13 PM EST): Will restart escitalopram , titrating to 10 mg as tolerated Pt plans to abstain from cannibus, declines assistance Encounter for immunization 03/17/2024 Recurrent major depressive disorder 02/28/2024 Dental plaque 08/26/2023 Dental caries 07/04/2023 Non-restorable tooth 07/04/2023 Thoracogenic scoliosis of thoracolumbar region 0 08/25/2022 Attention deficit hyperactiv ity disorder (ADHD), combined type 08/20/2022 Vitamin D deficiency 10/23/2018 Snoring 04/20/2018 Stress 01/11/2018 Loss of consciousness (CMS/HCC) 12/13/2017 Generalized anxiety disorder 11/14/2017 Overview (02/22/2025): Patient has frequent anxiety that is difficult to control. She also has a history of panic episodes. Anxiety is contributing to medical symptoms. Last Assessment & Plan: Will meet with patient individually next visit to further assess. Will talk with Alexa Harmon NP. Will consider med eval for anxiety. Patient has frequent anxiety that is difficult to control. She also has a history of panic episodes. Anxiety is contributing to medical symptoms. Assessment & Plan (03/17/2024 11:55 AM EDT): Referral to , contemplative about pharmacology Chronic daily headache 11/10/2017 Altered mental status 11/10/2017 Migraine with aura 10/25/2017 Obesity 02/06/2013 Resolved Problems Problem Noted Date Diagnosed Date Resolved Date Severe episode of recurrent major depressive disorder, without psychotic features ([facility]) 01/16/2024 02/28/2024 Depression 11/14/2017 02/28/2024 Overview (07/29/2022): Patient has ongoing symptoms of depression that are contributing to medical issues and have worsened with increasing stressors. Last Assessment & Plan: Will meet with patient individually next appointment. Will talk with Alexa Harmon NP. Sleep needs to be addressed. Consider referral for TM Encounters Date Type Department Care Team Description 03/25/2025 11:00 AM EST Office Visit [facility] ADULT D[facility] [address] [place] [address] Willem Perez DDS Dental caries (Primary Dx) 03/13/2025 11:00 AM EDT Office Visit [facility] [address] [place] [address] Louie Aponte DMD 03/13/2025 Telephone [facility] [address] [place] [address] Louie Aponte DMD running late dental appt 03/11/2025 Telephone [facility] MEDICINE [address] [place] [address] Valerie Kulkarni NP CH[employer] 03/08/2025 8:00 AM EDT Office Visit [facility] ADULT DENTAL [address] [place] [address] Ken Dias DMD 02/28/2025 1:00 PM EDT Office Visit [facility] ADULT DENTAL [address] [place] [address] Ken Dias DMD 02/22/2025 3:00 PM EDT Office Visit [facility] ADULT DENTAL [address] [place] [address] Mansoor Franz DDS 02/22/2025 Telephone [facility] ADULT DENTAL [address] [place] [address] Ken Dias DMD 02/18/2025 10:30 AM EDT Office Visit [facility] ADULT DENTAL [address] [place] [address] Ken Dias DMD 02/01/2025 8:00 AM EDT Office Visit [facility] ADULT DENTAL [address] [place] [address] Ken Dias DMD from Last 3 Months Immunizations Immunization Administration Dates Next Due DTaP 05/09/2008, 5,2003,08/26 DTaP / Hep B / IPV 2003 HPV 9-Valent 06/18/2016,01/17/2015 Hep A, ped/adol, 2 dose 02/07/2014,02/06/2013 Hep B, Adolescent or Pediatric 2003,2003 Hib (HbO) 11/04/2007, 4,2003,08/26 IPV 05/09/2008,2003,2003 Influenza injectable quadriv alent preservative free 05/13/2020,06/18/2016 Influenza, IIV3, injectable 02/07/2014,1 ,03/02/2005,05/07,04/07/2004 Influenza, Split (incl. palomo fied surface antigen) 02/06/2013 Influenza, seasonal, injecta ble, preservative free 02/28/2024 MMR 07/10/2007,07/07/2004 Meningococcal MCV4P ACYW-135 05/13/2020,01/18/20 15 Pfizer Covid-19 Vaccine 12+ 02/28/2024 Pneumococcal Conjugate PCV 7 11/03/2004, 2003,2003,08/26 Tdap 09/21/2024,01/17/2015 Varicella 05/09/2008,07/07/2004 Social History Tobacco Use Types [...] Sign Reading Time Taken Comments Blood Pressure 124/78 03/08/2025 8:27 AM EDT Pulse 91 09/21/2024 3:27 PM EDT Temperature 37.3 C (99.2 F) 09/21/2024 3:27 PM EDT Respiratory Rate 17 09/21/2024 3:27 PM EDT Oxygen Saturation 99% 09/21/2024 3:27 PM EDT Inhaled Oxygen Concentration - - Weight 118 kg (260 lb 6.4 oz) 09/21/2024 3:27 PM EDT Height 167.6 cm (5' 6 ) 06/18/2024 1:57 PM EST Body Mass Index 42.03 06/18/2024 1:57 PM EST Plan of Treatment Health Maintenance Due Date Last Done Comments Disability Screening 2003 Meningococcal B Vaccine (1 of 2 - Standard) 2019 Hepatitis C Screening 2021 Dental Prophylaxis 02/26/2024 08/26/2023, 03/23/2019 Pap Smear 2024 Depression Monitoring 07/18/2024 01/16/2024, 024 SDOH Screening 01/15/2025 01/16/2024 COVID-19 Vaccine ( season) 2025 02/28/2024, 10/23/2020, 09/25/2020 Influenza Vaccine (#1) 2025 , 05/13/2020, 06/18/2016, Additional history exists Alcohol/Substance Use Screening 06/18/2025 06/18/2024 Chlamydia and Gonorrhea Screening 06/18/2025 06/18/2024, 04/02/2024, 02/28/2024, Additional history exists Family Planning (PISQ) 06/18/2025 06/18/2024 Dental Oral Exam 08/02/2025 02/01/2025, , 03/23/2019 Dental X-Ray: Bitewings 02/23/2026 02/23/20 25, 02/01/2025, 07/21/2023, Additional history exists Tobacco Screening 03/13/2026 03/13/2025 Dental X-Ray: Full Mouth 03/14/2028 025, 07/21/2023, 03/23/2019 Lipid Panel 01/15/2029 01/16/2024 DTaP/Tdap/Td Vaccines (8 - Td or Tdap) 09/21/2034 09/21/2024, 01/17/2015, 05/09/2008, Additional history exists Zoster Vaccines (1 of 2) 2053 RSV Patients and Patients Aged 60 years or older (1 - 1-dose 75+ series) 2078 Hepatitis B Vaccines Completed 2003, 2003, 2003 Pneumococcal Vaccine: Pediatrics (0 to 5 Years) and At-Risk Patients (6 to 49) Years Aged Out 11/03/2004, 2003, 2003, Additional history exists No longer eligible based on patient's age to complete this topic HIB Vaccines Completed 11/04/2007, 10/2003, 2003, Additional history exists IPV Vaccines Completed 05/09/2008, 10/2003, 2003, Additional history exists Hepatitis A Vaccines Completed 02/07/2014, 02/07/20 13 HPV Vaccines Completed 06/18/2016, 01/17/2015 Meningococcal Vaccine Completed 05/13/2020, 015 HIV Screening Completed 04/04/2024 RSV under 20 months Aged Out No longe r eligible based on patient's age to complete this topic Rotavirus Vaccines Aged Out No longer eligible based on patient's age to complete this topic Procedures Procedure Name Priority Date/Time Associated Diagnosis Comments 15 LIMITED ORAL EVALUATION - PROBLEM FOCUSED Routine 03/25/2025 11:00 AM EST PANORAMIC RADIOGRAPHIC IMAGE Routine 03/13/2025 11:00 AM EDT CONSULTATION - DIAGNOSTIC SERVICE PROVIDED BY DENTIST OR PHYSICIAN OTHER THAN REQUESTING DENTIST OR PHYSICIAN Routine 03/13/2025 11:00 AM EDT CASE PRESENTATION, DETAILED AND EXTENSIVE TREATMENT PLANNING Routine 03/08/2025 8:00 AM EDT 30 O RESIN-BASED COMPOSITE - 1 SURF, POSTERIOR Routine 03/08/2025 8:00 AM EDT 31 O RESIN-BASED COMPOSITE - 1 SURF, POSTERIOR Routine 03/08/2025 8:00 AM EDT NO CHARGE VISIT Routine 02/28/2025 1:00 PM EDT BITEWING - SINGLE RADIOGRAPHIC IMAGE Routine 02/22/2025 3:00 PM EDT 15 INTRAORAL - PERIAPICAL FIRST RADIOGRAPHIC IMAGE Routine 02/22/2025 3:00 PM EDT PALLIATIVE (EMERGENCY) TREATMENT OF DENTAL PAIN - MINOR PROCEDURE Routine 02/22/2025 3:00 PM EDT CASE PRESENTATION, DETAILED AND EXTENSIVE TREATMENT PLANNING Routine 02/18/2025 10:30 AM EDT 15 O RESIN-BASED COMPOSITE - 1 SURF, POSTERIOR Routine 02/18/2025 10:30 AM EDT CASE PRESENTATION, DETAILED AND EXTENSIVE TREATMENT PLANNING Routine 02/01/2025 8:00 AM EDT INTRAORAL - PERIAPICAL EACH ADDITIONAL RADIOGRAPHIC IMAGE Routine 02/01/2025 8:00 AM EDT INTRAORAL - PERIAPICAL FIRST RADIOGRAPHIC IMAGE Routine 02/01/2025 8:00 AM EDT BITEWINGS - 4 RADIOGRAPHIC IMAGES Routine 02/01/2025 8:00 AM EDT PERIODIC ORAL EVALUATION - ESTABLISHED PATIENT Routine 02/01/2025 8:00 AM EDT CHLAMYDIA/N. GONORRHOEAE RNA, TMA, UROGENITAL Routine 06/18/2024 2:18 PM EST Vaginal discharge HIV 1/2 ANTIGEN/ANTIBODY, FOURTH GENERATION W/RFL Routine 04/04/2024 9:58 AM EST Urine frequency LIPID PANEL, STANDARD Routine 01/16/2024 12:07 PM EDT Class 3 severe obesity due to excess calories with serious comorbidity in adult, unspecified BMI ([facility]) PROPHYLAXIS - ADULT Routine 08/26/2023 1 :00 PM EDT Dental plaque from Last 3 Months or Most Recently Relevant to Health Maintenance Results * Chlamydia/N. Gonorrhoeae RNA, TMA, Urogenitial (06/18/2024 2:18 PM EST) CT PCR NOT DETECTED Not Detect. [facility] Comment:A not detected test result does [...] lead to adverse medical, social or psychologicalconsequences. NG PCR NOT DETECTED Not Detect. [facility] Comment:A not detected test result does [...] lead to adverse medical, social or psychologicalconsequences. Swab Vaginal structure / Unknown 06/18/2024 2:18 PM EST 06/18/2024 4:37 PM EST Narrative [facility] - 06/19/2024 12:21 PM EST Vaginal us Sharmaine Shaffer [facility] MICROBIOLOGY - GENERA L ORDERABLES Final Result [facility] [address] [place] [phone] * HIV-1/2 Antigen and Antibodies, Fourth Generation, with Reflexes (04/04/2024 9:58 AM EST) HIV AB/AG Nonreactive Nonreactive [facility] Comment:HIV-1 p24 Ag and/or HIV-1/HIV-2 Ab not detected.A test result that is nonreactive does not exclude thepossibility of exposure to or infection with HIV-1 and/orHIV-2. Nonreactive results in this assay for individualswith prior exposure to HIV-1 and/or HIV-2 may be due toantigen and antibody levels that are below the limit ofdetection of this assay.The [employer] HIV Ag/Ab Combo assay result andsupplemental assay results should be interpreted inconjunction with the patient's clinical presentation,history and other laboratory results. If the results areinconsistent with clinical evidence, additional testing issuggested to confirm the result. Blood Venous blood specimen / Unknown 04/04/2024 9:58 AM EST 04/04/2024 10:46 AM EST us Bruce Vieyra MD LAB BLOOD ORDERABLES Final Result [facility] [address] [place] [phone] [phone] * (ABNORMAL) Lipid Panel, Standard (01/16/2024 12:07 PM EDT) Triglycerides 57 <150 mg/dL [facility] Comment:Desirable Triglyceri de: less than 150 mg/dLBorderline High Triglyceride 150-199 mg/dLHigh Triglyceride: 200-499 mg/dLVery High Triglyceride: greater than or equal to 5OO mg/dL Cholesterol 154 <200 mg/dL [facility] Comment:Desirable Cholestero l: less than 200 mg/dLBorderline High Cholesterol: 200-239 mg/dLHigh Cholesterol: greater than 239 mg/dL LDL Cholesterol Calculated 107(H) <100 mg/dL [facility] Comment:Desirable LDL: less than 100 mg/dLNear Optimal/Above Optimal LDL: 110- 129 mg/dLBorderline High LDL: 130-159 mg/dLHigh LDL: 160-189 mg/dLVery High LDL: greater than or equal to 190 mg/dL HDL Cholesterol 36(L) >40 mg/dL [facility] Comment:Desirable HDL: great er than 40 mg/dL Note: This HDL assay may give artificially low results in patients with liver disease. Blood Venous blood specimen / Unknown 01/16/2024 12:07 PM EDT 01/16/2024 1:05 PM EDT us Jacque Feldman REAL ESTATE ANALYST LAB BLOOD ORDERABLES Final Resu lt [facility] [address] [place], [place] [phone] from Last 3 Months or Most Recently Relevant to Health Maintenance Insurance [facility] C3 DENTAL-[facility] MEDICAID STAND ADULT DENTAL-[facility] MEDICAID STAND ADULT Care Teams Facilitator Relationship Specialty Start Date End Date Valerie Kulkarni NP [address] [place] [address] PCP - General Family Medicine 06/21/23
--- OUTSIDE RECORDS SUMMARY | 2025-05-03 23:21 | XMS_ITS | Encounter Summary ---
Author Organization [employer] Address [address] [facility] 7t [place] [address] Care Team Providers Care Water Resource Consultant Name Role Phone Cassie Yeager MD Primary Care Provider [phone] Jacque Feldman Primary Care Provider + Valerie Kulkarni NP Primary Care Provider [phone] Reason for Visit * Reason Comments Med Refill Encounter Details Date Type Department Care Team (Late st Contact Info) Description 09/24/2022 Refill [facility] [address] [place], [place] [phone] Cassie Yeager MD [address] [place], [place] [phone] ADHD (attention deficit hyperactivity disorder), combined type [...] hyperactivity documented in this encounter Care Teams Water Resource Consultant Relationship Specialty Start Date End Date Cassie Yeager MD [address] [place], [place] [phone] PCP - General Pediatrics 04/02/14 04/18/23 Jacque Feldman FNP [address] [place] [address] PCP - General Family Medicine 04/19/23 06/20/23 Valerie Kulkarni NP [address] [place] [address] PCP - General Family Medicine 06/21/23 documented as of this encounter
--- OUTSIDE RECORDS SUMMARY | 2025-05-03 23:21 | XMS_ITS | Clinical Summary ---
Author Organization [facility] Address [address] [place] [phone] Phone Care Team Providers Care Unitizer Name Role Phone [facility] Primary Care Provider Allergies No known active allergies Medications escitalopram oxalate (LEXAPRO) 10 MG tablet TAKE 1/2 TABLET BY MOUTH FOR 7 DAYS THEN INCREASE TO TAKE 1 TABLET BY MOUTH EVERY DAY 05/02/2024 Active Social History Tobacco Use Types Packs/Day Years Used Date Smoking Tobacco: Never Assessed Education Answer Date Recorded Are you interested in more education? Not on jessica e 09/18/2022 Are you concerned about learning? Not on file 09/18/2022 No 09/18/2022 No 09/18/2022 Digital Access Answer Date Recorded No 10/19/2022 No 10/19/2022 Reliable internet access at home? Not on file 10/19/2022 Device with a working camera? Not on file Intimate Partner Violence Answer Date R ecorded Are you denied basic needs s uch as food, clothing, or medical care? Patient unable to respond 05/12/2024 In the past 12 months have y ou been in a relationship with a person who hurts, threatens, or tries to control you? Patient unable to respond 05/12/2024 Are you denied basic needs s uch as food, clothing, or medical care? Patient unable to respond 05/12/2024 In the past 12 months have y ou been in a relationship with a person who hurts, threatens, or tries to control you? Patient unable to respond 05/12/2024 Comments Unknown Sex and Gender Information Value Date Recorded Sex Assigned at Female 02/17/2022 2:07 PM EDT Legal Sex Female 1:43 PM EDT Gender Identity Female 02/17/2022 2:07 PM EDT Sexual Orientation Don't know 05/12/2024 8: 00 PM EST Last Filed Vital Signs Vital Sign Reading Time Taken Comments Blood Pressure 117/69 05/12/2024 9:05 PM EST Pulse 75 05/12/2024 9:05 PM EST Temperature 37.2 C (99 F) 05/12/2024 9:05 PM EST Respiratory Rate 19 05/12/2024 9:05 PM EST Oxygen Saturation 100% 05/12/2024 9:05 PM EST Inhaled Oxygen Concentration - - Weight 95.3 kg (210 lb) 05/12/2024 5:59 PM EST Height 167.6 cm (5' 6 ) 05/12/2024 5:59 PM EST Body Mass Index 33.89 05/12/2024 5:59 PM EST Plan of Treatment Health Maintenance Due Date Last Done Comments DEPRESSION SCREENING 2015 SMOKING Hx and SMOKELESS TOBACCO SCREENING 2016 HPV VACCINES (1 - 3-dose series) 2018 CHLAMYDIA SCREENING 2019 MENINGOCOCCAL VACCINES (B) (1 of 2 - Standard) 2019 HEPATITIS C SCREENING 2021 HIV ONE-TIME SCREENING (18-65 YEARS) 2021 PAP SMEAR 2024 INFLUENZA VACCINE (#1) 2024 Adult Td,Tdap Booster 01/17/2025 01/17/2015 COMBINED DTaP,Tdap,Td (6 - Td or Tdap) 01/17/2025 01/17/2015, 05/09/2008, 11/03/2004, Additional history exists COVID-19 VACCINE ( season) 2025 MMR VACCINES Completed 07/10/2007, 07/07/2004 ADOLESCENT UNIVERSAL LIPID SCREENING Completed 01/16/2024 HEPATITIS A VACCINES Aged Out No long er eligible based on patient's age to complete this topic HIB VACCINES Aged Out No longer eligi ble based on patient's age to complete this topic MENINGOCOCCAL VACCINES (ACWY) Aged Out No longer eligible based on patient's age to complete this topic PNEUMOCOCCAL VACCINES (0-49 years) Aged Out No longer eligible based on patient's age to complete this topic Medical Devices Not on file Insurance C3 ACO C3 ACO C3 ACO C3 ACO C3 ACO C3 ACO C3 ACO C3 ACO C3 ACO Care Teams Unitizer Relationship Specialty Start Date End Date [facility], [place] Cathy [address] [place] [address] PCP - General 12/21/24 Additional Source Comments The information contained in this document represents components of the legal health record. It is not the complete legal health record.[facility]
== END 2025-05-03 23:20 | disposition home or self-care (01) ==
LOC: HO.ED 23:18
PROVIDERS: Emergency Provider Emergency Medicine; PCP Nurse Practitioner Family
DX: S60.212A Contusion of left wrist, initial encounter (principal); W50.0XXA Accidental hit or strike by another person, initial encounter; M25.532 Pain in left wrist; Y93.83 Activity, rough housing and horseplay; Y92.9 Unspecified place or not applicable; Y99.9 Unspecified external cause status
CPT/HCPCS: 73110; 73130; 99282; 99283

== ENCOUNTER → 2025-05-03 22:31 | Outpatient (BNV) | payer MEDICAID, SELFPAY | PROVIDERS: Emergency Provider Emergency Medicine; PCP Nurse Practitioner Family; Visit Provider Radiology Diagnostic Radiology | DX: Z04.3 Encounter for examination and observation following other accident (principal) | CPT/HCPCS: 73110; 73130 ==